=== PATIENT | female | born 1950 | race Caucasian/White ===

== ENCOUNTER 2020-04-16 11:01 | Outpatient (CLI) | payer OTHER, SELFPAY ==
[2020-04-17 17:28] LABS: COVID-19 RT-PCR Result NEGATIVE (Negative)
== END 2020-04-16 11:21 ==
DX: R06.09 Other forms of dyspnea (principal); Z01.818 Encounter for other preprocedural examination
CPT/HCPCS: U0003

== ENCOUNTER 2020-10-05 02:35 | Outpatient (CLI) | payer OTHER, SELFPAY ==
[2020-10-06 12:42] LABS: COVID-19 RT-PCR UVMMC Result Negative (Negative)
== END 2020-10-05 02:36 | disposition home or self-care (01) ==
LOC: LBO 02:36
DX: Z11.52 Encounter for screening for COVID-19 (principal); Z01.818 Encounter for other preprocedural examination
CPT/HCPCS: U0003

== ENCOUNTER 2020-12-06 16:25 | Outpatient (REF) | payer OTHER, SELFPAY ==
[2020-12-06 22:11] LABS: ALT 34 U/L (14-59); AST 18 U/L (15-37); Albumin 4.2 g/dL (3.4-5.0); Alkaline Phosphatase 67 U/L (46-116); Anion Gap 9.2 mmol/L (3-11); BUN 13 mg/dL (7-18); Bilirubin, Total 0.3 mg/dL (0.2-1.0); CO2 27.8 mmol/L (21.0-32.0); CREATININE 0.9 mg/dL (0.55-1.02); Calcium 8.8 mg/dL (8.5-10.1); Chloride 103 mmol/L (98-107); Glucose 90 mg/dL (74-106); Hemoglobin A1C 5.7 % (<5.7); Potassium 4.3 mmol/L (3.5-5.1); Sodium 140 mmol/L (136-145); Total Protein 7.2 g/dL (6.4-8.2); Vitamin B12 291 pg/mL (193-986)
== END 2020-12-06 16:26 | disposition home or self-care (01) ==
LOC: NCHCN 16:25
PROVIDERS: Visit Provider Nurse Practitioner Family
DX: E78.00 Pure hypercholesterolemia, unspecified (principal); I10 Essential (primary) hypertension; I25.10 Atherosclerotic heart disease of native coronary artery without angina pectoris; F31.9 Bipolar disorder, unspecified; K21.9 Gastro-esophageal reflux disease without esophagitis; E66.9 Obesity, unspecified; J44.9 Chronic obstructive pulmonary disease, unspecified; Z79.899 Other long term (current) drug therapy
CPT/HCPCS: 80053; 82607; 83036; 83735

== ENCOUNTER → 2021-01-20 12:57 | Outpatient (BNVA) | payer OTHER, SELFPAY | PROVIDERS: PCP Family Medicine; Referring Provider Family Medicine; Visit Provider Physical Therapy Assistant | DX: K21.9 Gastro-esophageal reflux disease without esophagitis (principal); Z12.11 Encounter for screening for malignant neoplasm of colon; J44.9 Chronic obstructive pulmonary disease, unspecified; Z80.0 Family history of malignant neoplasm of digestive organs | CPT/HCPCS: 99214 ==

== ENCOUNTER 2021-02-08 14:17 | Outpatient (REF) | payer OTHER, SELFPAY ==
[2021-02-08 21:34] LABS: Abs Immature Grans 0.02 10^3/uL (0.0-0.06); Absolute Basophil Count 0.03 10^3/uL (0.0-0.2); Absolute Eosinophil Count 0.08 10^3/uL (0.0-0.7); Absolute Lymphocyte Count 2.16 10^3/uL (1.2-3.4); Absolute Monocyte Count 0.42 10^3/uL (0.1-0.8); Absolute Neutrophil Count 3.19 10^3/uL (1.2-6.7); Basophils % 0.5; Eosinophils % 1.4; HCT 39.6 % (36.0-46.0); HGB 12.9 g/dL (11.2-15.7); Immature Grans % 0.3; Lymphocytes % 36.6; MCH 29.9 pg (27.0-33.0); MCHC 32.6 % (32.0-36.0); MCV 91.7 fL (80-95); MPV 12.3 fL (8.0-11.0); Monocytes % 7.1; Neutrophils % 54.1; Nucleated RBC 0 %; Platelet Count 119 10^3/uL (130-400); RBC 4.32 10^6/uL (3.93-5.22); RDW 14.5 % (11.7-14.6); RDW-SD 48.5 fL
[2021-02-08 21:36] LABS: ESR 12 mm/hr (0-30)
[2021-02-08 21:56] LABS: C-Reactive Protein 0.34 mg/dL (0.0-0.3)
== END 2021-02-08 14:18 | disposition home or self-care (01) ==
LOC: NCHCN 14:17
PROVIDERS: PCP Nurse Practitioner Family; Visit Provider Nurse Practitioner Family
DX: M31.6 Other giant cell arteritis (principal)
CPT/HCPCS: 85652; 85025; 86140

== ENCOUNTER 2021-02-11 03:40 | Outpatient (CLI) | payer OTHER, SELFPAY ==
[2021-02-11 11:29] LABS: Source Nasal/Nares
[2021-02-11 13:29] LABS: COVID-19 PCR Negative (Negative)
== END 2021-02-11 03:41 | disposition home or self-care (01) ==
LOC: LBO 03:40
PROVIDERS: PCP Nurse Practitioner Family; Visit Provider Surgery
DX: Z20.822 Contact with and (suspected) exposure to COVID-19 (principal); Z01.818 Encounter for other preprocedural examination
CPT/HCPCS: 87635

== ENCOUNTER 2021-02-14 07:15 | Day surgery (SDC) | payer OTHER, SELFPAY ==
[2021-02-14 07:17] VITALS: BP 137/84; PULSE 67; RESP 18; TEMP 36.6; O2SAT 91
[2021-02-14] MEDS: Lactated Ringers 1,000 ML 80 ML IV (07:44)
--- NOTE | 2021-02-14 08:11 | W.ANESPRE ---
General Info Date of Service Date Performed: 02/14/21 Height: 5 ft 1.02 in Weight: 81.2 kg Body Mass Index (BMI): 33.7 Surgical Procedure: Operation Date: 02/14/21 08:35 Proposed Procedures Side Surgeon p Colonoscopy/Gastroscopy Evaristo Miranda DO Meds Allergies and Home Medications Allergies Allergy/AdvReac Type Severity Reaction Status Date / Time Penicillins Allergy Severe Anaphylaxis Verified 02/11/21 11:04 Sulfa (Sulfonamide Allergy Severe none noted Verified 02/11/21 11:04 Antibiotics) on referral zolpidem [From Ambien] Allergy Severe none noted Verified 02/11/21 11:04 on referral gluten Allergy Intermediate none noted Verified 02/11/21 11:04 on referral ibuprofen Allergy Intermediate none noted Verified 02/11/21 11:04 on referral indapamide Allergy Intermediate none noted Verified 02/11/21 11:04 on referral piroxicam [From Feldene] Allergy Intermediate none noted Verified 02/11/21 11:04 on referral Home Medication Medication Instructions Recorded acetaminophen 650 mg 1,300 mg PO DAILY tab 12/31/20 tablet,extended release albuterol sulfate 90 mcg/actuation 2 puff INHALATION Q6H PRN 12/31/20 aerosol inhaler betamethasone dipropionate 0.05 % 1 applic TOPICAL DAILY PRN 12/31/20 topical cream budesonide-formoterol HFA 160 2 puff INHALATION BID 12/31/20 mcg-4.5 mcg/actuation aerosol inhaler cholecalciferol (vitamin D3) 25 25 mcg PO DAILY 12/31/20 mcg (1,000 unit) capsule clonazepam 0.5 mg tablet 0.5 mg PO PRN tab 12/31/20 docusate sodium 100 mg capsule 100 mg PO BID 12/31/20 enalapril maleate 5 mg tablet 5 mg PO BID 12/31/20 escitalopram oxalate 5 mg tablet 5 mg PO DAILY 12/31/20 lactobacillus combination no.9 4 4,000 mmu cells PO DAILY 12/31/20 billion cell capsule loratadine 10 mg capsule 10 mg PO DAILY 12/31/20 lovastatin 20 mg tablet 10 mg PO DAILY tab 12/31/20 melatonin 10 mg capsule 10 mg PO HS PRN 12/31/20 oxybutynin chloride 10 mg 10 mg PO DAILY 12/31/20 tablet,extended release 24 hr pantoprazole 40 mg tablet,delayed 40 mg PO DAILY 12/31/20 release bisacodyl 5 mg tablet,delayed 5 mg PO ONCE #4 tab 01/20/21 release polyethylene glycol 3350 17 238 g PO ONCE #238 g 01/20/21 gram/dose oral powder vitamin B complex 1 tab PO DAILY 01/20/21 Current Visit Medications: Current Medications Generic Name Dose Route Start Last Admin Trade Name Freq PRN Reason Stop Dose Admin Ringer's Solution 1,000 mls @ 80 mls/hr 02/14/21 06:00 02/14/21 07:44 IV 03/13/21 23:59 80 mls/hr INFUSION MATT Administration IV Miscellaneous Supplies 1 each 02/14/21 06:00 Iv Access IV 03/13/21 23:59 DIRECTED MATT Sodium Chloride 0 ml 02/14/21 06:00 Normal Saline Flush 10 Ml Syr IV 03/13/21 23:59 PRN PRN Sodium Chloride 0 ml 02/14/21 06:00 Normal Saline 10 Ml Vial IJ 03/13/21 23:59 DIRECTED PRN Sterile Water 0 ml 02/14/21 06:00 Water,Injection,Sterile 10 Ml Vial IJ 03/13/21 23:59 DIRECTED PRN PFSH Active Problems Active Problems: Problem Status Onset Code Gastroesophageal reflux disease K21.9 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 Screening for colon cancer Z12.11 Medical History Medical History Atherosclerosis Bipolar 1 disorder Cataract COPD (chronic obstructive pulmonary disease) Deafness in left ear Family history of breast cancer in first degree relative Family history of celiac sprue Family hx of colon cancer Former smoker Functional constipation GERD (gastroesophageal reflux disease) Glaucoma Gluten intolerance History of prediabetes Hypercholesterolemia Hypertension Impacted cerumen of left ear Lichen sclerosus et atrophicus of the vulva Mixed incontinence urge and stress Obesity RICARDO (obstructive sleep apnea) Osteoarthritis Pseudophakia Suicidal risk Temporal arteritis Thrombocytopenia Vaginal atrophy Surgical History Surgical History H/O knee surgery H/O tubal ligation History of appendectomy History of fundoplication History of tonsillectomy History of urethral stent Hx of cataract surgery Tobacco Smoking/Tobacco Use Status: Former Tobacco Use Alcohol Alcohol Intake: current Alcohol intake frequency: 0-2 drinks per day Alcohol type: wine Substance Use Substance use type: does not use Vital Signs and Lab Results Vital Signs Most Recent Vital Signs in EMR: Most Recent Vital Signs Temp Pulse Resp BP Pulse Ox 36.6 C 67 18 137/84 91 L 02/14/21 07:17 02/14/21 07:17 02/14/21 07:17 02/14/21 07:17 02/14/21 07:17 Lab Results Blood Type / Crossmatch: No Data to Display Complete Blood Count: White Blood Count 5.90 10^3/uL (4.4-10.8) 02/08/21 13:40 02/08/21 Red Blood Count 4.32 10^6/uL (3.93-5.22) 02/08/21 13:40 02/08/21 Hemoglobin 12.9 g/dL (11.2-15.7) 02/08/21 13:40 02/08/21 Hematocrit 39.6 % (36.0-46.0) 02/08/21 13:40 02/08/21 Platelet Count 119 10^3/uL (130-400) L 02/08/21 13:40 02/08/21 Complete Metabolic Panel: C-Reactive Protein 0.34 mg/dL (0.0-0.3) H 02/08/21 13:40 02/08/21 Liver Function Panel: No Data to Display Coagulation Panel: No Data to Display Cardiac Panel: No Data to Display Arterial Blood Gas: No Data to Display Venous Blood Gas: No Data to Display Pancreas Panel: No Data to Display Thyroid Panel: No Data to Display Infectious Disease: Coronavirus (COVID-19)(PCR) Negative (Negative) 02/11/21 08:55 02/11/21 Coronavirus 2019 Source Nasal/nares 02/11/21 08:55 02/11/21 Blood Cultures: No Data to Display Toxicology Panel: No Data to Display Anesthesia Assessment and Plan Anesthesia History Personal History: No History of Anesthesia Complications Family History: No Family History of Anesthesia Complications Exercise Tolerance Exercise Tolerance: Metabolic Equivalents>4 Pertinent Negatives Pertinent Negatives: No Major Cardiovascular Symptoms or Complaints and No History of CVA/TIA Cardiac & Pulmonary Exam Cardiac Exam: Normal S1/S2 Heart Sounds Pulmonary Exam: Clear Bilateral Breath Sounds Airway Exam Known Difficult Airway: No Mallampati Class: 1 Mouth Opening: Normal (> 3cm) Thyromental Distance: Greater than 3 cm Neck Range of Motion: Full ROM Neck Circumference: Normal Teeth Condition: Removable Dentures/Plates Upper ASA Classification ASA Score: ASA 3 Emergency Case?: No NPO Status NPO Status: NPO Clears >2 hours, Solids >8 hours Anesthesia Plan Resuscitation Status: Full Code Anesthesia Technique: General Anesthesia Airway Planned: Natural Airway Monitors Used: Standard Monitors
--- NOTE | 2021-02-14 08:32 | W.PM.HP.N ---
Date of service: 02/14/21 Time of Service: 08:32 Assessment and Plan Assessment and plan (1) Screening for colon cancer: Status: Acute Assessment and plan: To OR for colonoscopy. Risks and benefits, including bleeding and risk of perforation, explained to the patient. History of Present Illness History of Present Illness Chief Complaint: Need for colonscopy Narrative: Patient presents for screening colonoscopy. Reports that her last colonoscopy was 8-10 years ago. No personal history of polyps. Her father had colon cancer in his 40's but did not pass away until 94 years old. [facility] Medical History Atherosclerosis Bipolar 1 disorder Cataract COPD (chronic obstructive pulmonary disease) Deafness in left ear Family history of breast cancer in first degree relative Family history of celiac sprue Family hx of colon cancer Former smoker Functional constipation GERD (gastroesophageal reflux disease) Glaucoma Gluten intolerance History of prediabetes Hypercholesterolemia Hypertension Impacted cerumen of left ear Lichen sclerosus et atrophicus of the vulva Mixed incontinence urge and stress Obesity RICARDO (obstructive sleep apnea) Osteoarthritis Pseudophakia Suicidal risk Temporal arteritis Thrombocytopenia Vaginal atrophy Surgical History H/O knee surgery H/O tubal ligation History of appendectomy History of fundoplication History of tonsillectomy History of urethral stent Hx of cataract surgery Family History (Updated 02/10/21 @ 14:08 by Loli Woods) Father , FROM [place] Colon cancer Dementia FH: cataracts Mother Heart disease Depression Arthritis Diabetes Hypertension Sister Breast cancer Hypertension Sister Kidney malignancy COPD (chronic obstructive pulmonary disease) Loss of balance Sister COPD (chronic obstructive pulmonary disease) Cancer Smoker Sister COPD (chronic obstructive pulmonary disease) Obesity Diabetes Sister COPD (chronic obstructive pulmonary disease) Obesity Smoker Stroke Brother Myocardial infarct, old Brother Hypertension Myocardial infarct, old Daughter Asthma Son Lung abnormality Social History (Updated 02/10/21 @ 13:54 by Loli Woods) Smoking/Tobacco Use Status: Former Tobacco Use Quit Date: 09/03/13 Smoking risk assessment performed?: Yes Alcohol Intake: current Alcohol Intake frequency: 0-2 drinks per day Alcohol type: wine Substance use type: does not use Do you feel safe at home: Yes Do you feel safe in your relationship?: Yes Meds Allergies and Home Medications Allergies Allergy/AdvReac Type Severity Reaction Status Date / Time Penicillins Allergy Severe Anaphylaxis Verified 02/11/21 11:04 Sulfa (Sulfonamide Allergy Severe none noted Verified 02/11/21 11:04 Antibiotics) on referral zolpidem [From Ambien] Allergy Severe none noted Verified 02/11/21 11:04 on referral gluten Allergy Intermediate none noted Verified 02/11/21 11:04 on referral ibuprofen Allergy Intermediate none noted Verified 02/11/21 11:04 on referral indapamide Allergy Intermediate none noted Verified 02/11/21 11:04 on referral piroxicam [From Feldene] Allergy Intermediate none noted Verified 02/11/21 11:04 on referral Home Medications Medication Instructions Recorded Confirmed Type acetaminophen 650 mg 1,300 mg PO DAILY tab 12/31/20 02/14/21 History tablet,extended release albuterol sulfate 90 mcg/actuation 2 puff INHALATION Q6H PRN 12/31/20 02/14/21 History aerosol inhaler betamethasone dipropionate 0.05 % 1 applic TOPICAL DAILY PRN 12/31/20 02/14/21 History topical cream budesonide-formoterol HFA 160 2 puff INHALATION BID 12/31/20 02/14/21 History mcg-4.5 mcg/actuation aerosol inhaler cholecalciferol (vitamin D3) 25 25 mcg PO DAILY 12/31/20 02/14/21 History mcg (1,000 unit) capsule clonazepam 0.5 mg tablet 0.5 mg PO PRN tab 12/31/20 02/14/21 History docusate sodium 100 mg capsule 100 mg PO BID 12/31/20 02/14/21 History enalapril maleate 5 mg tablet 5 mg PO BID 12/31/20 02/14/21 History escitalopram oxalate 5 mg tablet 5 mg PO DAILY 12/31/20 02/14/21 History lactobacillus combination no.9 4 4,000 mmu cells PO DAILY 12/31/20 02/14/21 History billion cell capsule loratadine 10 mg capsule 10 mg PO DAILY 12/31/20 02/14/21 History lovastatin 20 mg tablet 10 mg PO DAILY tab 12/31/20 02/14/21 History melatonin 10 mg capsule 10 mg PO HS PRN 12/31/20 02/14/21 History oxybutynin chloride 10 mg 10 mg PO DAILY 12/31/20 02/14/21 History tablet,extended release 24 hr pantoprazole 40 mg tablet,delayed 40 mg PO DAILY 12/31/20 02/14/21 History release bisacodyl 5 mg tablet,delayed 5 mg PO ONCE #4 tab 01/20/21 02/14/21 Rx release polyethylene glycol 3350 17 238 g PO ONCE #238 g 01/20/21 02/14/21 Rx gram/dose oral powder vitamin B complex 1 tab PO DAILY 01/20/21 02/14/21 History Exam Chest Chest: normal inspection of the chest Resp Effort & Inspection: normal respiratory effort, able to speak in complete sentences and no tracheal deviation Cardio Jugular venous pressure: no JVD Rate: regular rate Rhythm: regular rhythm Results Last Vital Signs Temp 97.9 F 02/14/21 07:17 Pulse 67 02/14/21 07:17 Resp 18 02/14/21 07:17 BP 137/84 02/14/21 07:17 Pulse Ox 91 L 02/14/21 07:17 COVID-19 Screening Have you, or household traveled for leisure in last 14 days?: No Had IN PERSON contact w/suspected or confirmed C-19 person: No
[2021-02-14 08:42] VITALS: BMI 33.7
--- NOTE | 2021-02-14 09:45 | W.PM.ENDDOP ---
Date of service: 02/14/21 Time of Service: 09:45 Endoscopy Report DATE OF PROCEDURE: 02/14/21 PRE-OP DIAGNOSIS: GERD. Need for screening colonoscopy POST-OP DIAGNOSIS: other (Normal EGD. Minimal colonic divertidculosis. No significant hemorrhoids) PROCEDURE: EGD and Screening colonoscopy SURGEON: Evaristo Miranda ANESTHESIA TYPE: General:No Airway ESTIMATED BLOOD LOSS: 0 PATHOLOGY: none sent COMPLICATIONS: None DISPOSITION: same day INDICATIONS: Patient has longstanding GERD and is in need of a screening colonoscopy PREP: Miralax/Dulcolax COLONOSCOPY RETRACTION TIME: 18 min FINDINGS: Normal EGD. 1 small diverticulum in the ascending colon No significant hemorrhoids PROCEDURE DESCRIPTION: Patient was wheeled into the procedure room and placed on the hospital bed in the left lateral position. Adequate anesthesia was performed by the department of anesthesia. Consent was obtained prior. Scope was then inserted in the patient's mouth and easily advanced all the way into the third portion of the duodenum. Photographs were taken of the duodenum. Scope was then slowly withdrawn examining the duodenum and stomach. There was no pathology. There was no hiatal hernia or gastritis. Retroflexion view was performed. Scope was then slowly withdrawn through the esophagus again no hiatal hernia was seen. The GE junction was pristine. I slowly withdrew the scope through the esophagus and saw no pathology. Patient was then turned and attention was taken to the colonoscopy. A digital rectal exam was performed and was within normal limits. The scope was then easily advanced all the way to the ileocecal valve. Photos were taken in the cecum. The scope was then slowly withdrawn looking at all gonzáles of the colon. The prep was excellent. The only pathology seen on colonoscopy was one diverticulum in the distal ascending colon. There is no significant hemorrhoids. Patient conveyed to me preoperatively that she believes she might be passing stool and flatus through her vagina, however no fistula was identified. Significant time was taken looking through the rectum for a possible fistula. The scope was then withdrawn. Patient tolerated procedure well.
--- NOTE | 2021-02-14 09:51 | W.PM.DSUDISC ---
Discharge Plan Discharge Details Attending Provider: Evaristo Miranda Primary Care Provider: Sarita Bone Home Meds and New Rx's Prescriptions: No Action vitamin B complex [B Complex-Vitamin B12] Tablet 1 tab PO DAILY RF: 0 bisacodyl [Dulcolax (bisacodyl)] 5 mg tablet,delayed release (DR/EC) 5 mg PO ONCE Qty: 4 RF: 0 polyethylene glycol 3350 17 gram/dose powder 238 g PO ONCE Qty: 238 RF: 0 enalapril maleate 5 mg tablet 5 mg PO BID RF: 0 docusate sodium [Colace] 100 mg capsule 100 mg PO BID RF: 0 albuterol sulfate 90 mcg/actuation HFA aerosol inhaler 2 puff inhalation Q6H PRNRF: 0 budesonide-formoterol [Symbicort] 160-4.5 mcg/actuation HFA aerosol inhaler 2 puff inhalation BID RF: 0 clonazepam 0.5 mg tablet 0.5 mg PO PRN RF: 0 oxybutynin chloride [Ditropan XL] 10 mg tablet extended release 24hr 10 mg PO DAILY RF: 0 escitalopram oxalate 5 mg tablet 5 mg PO DAILY RF: 0 acetaminophen [Tylenol Arthritis Pain] 650 mg tablet extended release 1,300 mg PO DAILY RF: 0 betamethasone dipropionate 0.05 % cream 1 applic topical DAILY PRNRF: 0 cholecalciferol (vitamin D3) 25 mcg (1,000 unit) capsule 25 mcg PO DAILY RF: 0 Adult 50 Plus Probiotic 4 billion cell capsule 4,000 mmu cells PO DAILY RF: 0 loratadine 10 mg capsule 10 mg PO DAILY RF: 0 melatonin 10 mg capsule 10 mg PO HS PRNRF: 0 lovastatin 20 mg tablet 10 mg PO DAILY RF: 0 pantoprazole [Protonix] 40 mg tablet,delayed release (DR/EC) 40 mg PO DAILY RF: 0 DS: Diagnosis Discharge Diagnosis (1) Screening for colon cancer: Status: Acute Asessment and Plan: mild diverticulosis. Normal EGD. No rectovaginal fistula identified. No significant hemorrhoids.
[2021-02-14 09:53] VITALS: BP 115/57; PULSE 59; RESP 14; TEMP 36.8; O2SAT 93
[2021-02-14 10:20] VITALS: BP 146/80; PULSE 58; RESP 16; TEMP 36.3; O2SAT 92
--- NOTE | 2021-02-14 11:43 | W.ANESPOSTOP ---
Postoperative Evaluation Date, Time and Location Date Performed: 02/14/21 Time Performed: 11:43 Patient Location: Day Surgery Unit Vital Signs Most Recent Imported Vital Signs: Most Recent Vital Signs Temp Pulse Resp BP Pulse Ox 36.3 C L 58 L 16 146/80 H 92 02/14/21 10:20 02/14/21 10:20 02/14/21 10:20 02/14/21 10:20 02/14/21 10:20 Pain Score Most Recent Pain Score: Most Recent Pain Score Pain Level 0 02/14/21 09:53 Assessment Mental Status: Awake (Alert & Oriented to Patient Baseline) Airway and Respiratory Function: Patent airway with normal (patient baseline) respiratory exam Cardiovascular Function: Hemodynamically Stable Hydration Status: Adequately Hydrated Nausea & Vomiting: No Nausea or Vomiting Pain: Pt. Denies Any Pain Peripheral Nerve Block: Patient did not receive a nerve block
== END 2021-02-14 10:30 | disposition home or self-care (01) ==
LOC: SUR 10:39
PROVIDERS: PCP Nurse Practitioner Family; Visit Provider Surgery
PROC: (CPT 43235; principal; 2021-02-14 08:30)
DX: Z12.11 Encounter for screening for malignant neoplasm of colon (principal); K21.9 Gastro-esophageal reflux disease without esophagitis; K57.30 Diverticulosis of large intestine without perforation or abscess without bleeding; J44.9 Chronic obstructive pulmonary disease, unspecified; Z87.891 Personal history of nicotine dependence; I10 Essential (primary) hypertension; G47.33 Obstructive sleep apnea (adult) (pediatric)
CPT/HCPCS: 43235; G0121; J2001; J2250

== ENCOUNTER 2021-02-15 13:19 | Outpatient (REF) | payer OTHER, SELFPAY ==
[2021-02-15 20:51] LABS: ALT 29 U/L (14-59); AST 16 U/L (15-37); Albumin 4.1 g/dL (3.4-5.0); Alkaline Phosphatase 81 U/L (46-116); Anion Gap 6.4 mmol/L (3-11); BUN 12 mg/dL (7-18); Bilirubin, Total 0.3 mg/dL (0.2-1.0); CO2 30.6 mmol/L (21.0-32.0); CREATININE 0.9 mg/dL (0.55-1.02); Chloride 107 mmol/L (98-107); Glucose 55 mg/dL (74-106); Potassium 4.4 mmol/L (3.5-5.1); Sodium 144 mmol/L (136-145); TSH (W/Ref FT4) 0.59 uIU/mL (0.36-3.74); Total Protein 7.3 g/dL (6.4-8.2)
== END 2021-02-15 13:20 | disposition home or self-care (01) ==
LOC: NCHCN 13:19
PROVIDERS: PCP Nurse Practitioner Family; Visit Provider Nurse Practitioner Family
DX: I10 Essential (primary) hypertension (principal); D69.6 Thrombocytopenia, unspecified; M31.6 Other giant cell arteritis
CPT/HCPCS: 80053; 84443; 85049; 85610

== ENCOUNTER 2021-02-18 13:49 | Outpatient (REF) | payer OTHER, SELFPAY ==
[2021-02-18 14:08] LABS: Platelet Count 151 10^3/uL (130-400)
== END 2021-02-18 13:50 | disposition home or self-care (01) ==
LOC: NCHCN 13:49
PROVIDERS: PCP Nurse Practitioner Family; Visit Provider Nurse Practitioner Family
DX: D69.6 Thrombocytopenia, unspecified (principal)
CPT/HCPCS: 85049

== ENCOUNTER 2021-03-24 01:43 | Outpatient (CLI) | payer OTHER, SELFPAY ==
--- NOTE | 2021-03-24 | DI.DEXA_ITS ---
Exam(s) XR DEXA BONE DENSITY W/WO MICHAEL EXAM: XR DEXA BONE DENSITY W/WO MICHAEL CLINICAL HISTORY: DISORDER OF BONE DENSITY AND STRUCTURE, M85.88 TECHNIQUE: Routine DEXA evaluation of the lumbar spine, hip, or forearm. COMPARISON: Prior DEXA scan February 2012 FINDINGS: Performed on a [employer] unit. Lateral image: No compression fracture evident. Lumbar Spine total T-score: -1.9. Prior 1011 reading was -2.0 Hip total T-score:-1.1. Prior 2011 reading was -1.2. Independent reading at the femoral neck level yields a T-score of -1.7 Forearm total T-score: -0.9 IMPRESSION: Bone mineral density measures in the osteopenia range. Fracture risk is moderate. Note: Any spine fracture indicates 5x risk for subsequent spine fracture and 2x risk for subsequent h ip fracture. World Health Organization criteria for BMD interpretation classify patients: Normal...... T- Score at or above -1.0 Osteopenic... T- Score between -1.0 and -2.5 Osteoporosis... T-Score at or below -2.5
--- NOTE | 2021-03-24 | DI.MAMMO_ITS ---
Exam(s) MAMMO SCREENING EXAM: MAMMO SCREENING CLINICAL HISTORY: SCREENING, FAMILY H/O BREAST CA,Z80.3 TECHNIQUE: Bilateral full field digital CC and MLO mammographic images were obtained with 3D tomosyn thesis and utilizing computer aided detection (CAD). COMPARISON: Available for comparison. FINDINGS: Masses/Architectural Distortion: There is asymmetric breast tissue in the upper outer quadrant of the right breast seen on both the CC and MLO views. This area should be further evaluated. Microcalcifications: No suspicious pleomorphic-type are seen. Skin Thickening/Nipple Retraction: None. IMPRESSION: 1. Asymmetric breast tissue in the upper-outer quadrant of the right breast. 2. Additional views and right breast ultrasound are recommended for further evaluation. BI-RADS Category 0 - Assessment Incomplete: Need additional imaging evaluation Breast Density - Category C - Heterogeneously dense Breast density category C or D implies that the patient has dense breast tissue. Dense breast tissue is very common and is not abnormal but dense breast tissue can make it harder to find cancer on a ma mmogram. Also, dense breast tissue may increase their breast cancer risk. This information about the result of the mammogram report was provided to the patient to raise their awareness. Use this report when you speak with the patient about their risks for breast cancer, which includes their family hist ory. At that time, you may recommend for more screening tests (Ultrasound or MRI) as they might be us eful based on their risk. A negative radiographic report should not delay biopsy if a dominant or clinically suspicious mass is present. Up to ten percent of cancers are not identified on mammography. A negative report may reinforce clinical impression. Adenosis and dense breasts may obscure an underlying neoplasm. False positive reports average 6 to 10%. Patient will receive a letter notifying them of these results.
== END 2021-03-24 02:03 ==
PROVIDERS: PCP Nurse Practitioner Family; Visit Provider Nurse Practitioner Family
DX: M85.88 Other specified disorders of bone density and structure, other site; Z80.3 Family history of malignant neoplasm of breast
CPT/HCPCS: 77063; 77067; 77080

== ENCOUNTER → 2021-04-12 01:38 | Outpatient (CLI) | payer OTHER, SELFPAY ==
--- NOTE | 2021-04-12 | DI.US_ITS ---
Exam(s) MG MAMMO SCREEN CALL BACK UNI US BREAST RT LIMITED EXAM: MG MAMMO SCREEN CALL BACK UNI CLINICAL HISTORY: F/U MAMMO,RT BREAST ASYMMETRIC TISSUE. TECHNIQUE: Craniocaudal and mediolateral oblique spot compression digital Mammography views of the r ight breast with Computer Aided Diagnosis followed by Tomosynthesis and right breast ultrasound. COMPARISON: 2011, 2016 and 24 March 2021 FINDINGS: Mammography/Tomosynthesis: Masses/Architectural Distortion: None seen. Microcalcifictions: No suspicious pleomorphic-type are seen. Skin Thickening/Nipple Retraction: None. Breast US: Echotexture: Normal appearance of the glandular tissue. Shadowing: No suspicious foci. Cyst: None. Solid lesions: None seen. Ductal dilation: None. IMPRESSION: 1. No evidence of malignancy is noted. 2. Six-month follow-up mammogram recommended. BI-RADS Category 3 - 6 month - Probably Benign Finding: Recommend follow-up imaging in 6 months Breast Density - Category C - Heterogeneously dense Breast density category C or D implies that the patient has dense breast tissue. Dense breast tissue is very common and is not abnormal but dense breast tissue can make it harder to find cancer on a ma mmogram. Also, dense breast tissue may increase their breast cancer risk. This information about the result of the mammogram report was provided to the patient to raise their awareness. Use this report when you speak with the patient about their risks for breast cancer, which includes their family hist ory. At that time, you may recommend for more screening tests (Ultrasound or MRI) as they might be us eful based on their risk. A negative radiographic report should not delay biopsy if a dominant or clinically suspicious mass is present. Up to ten percent of cancers are not identified on mammography. A negative report may reinforce clinical impression. Adenosis and dense breasts may obscure an underlying neoplasm. False positive reports average 6 to 10%. Patient will receive a letter notifying them of these results.
== END ==
PROVIDERS: PCP Nurse Practitioner Family; Visit Provider Nurse Practitioner Family
DX: R92.8 Other abnormal and inconclusive findings on diagnostic imaging of breast (principal); N64.89 Other specified disorders of breast
CPT/HCPCS: 76642; 77063; 77067

== ENCOUNTER 2021-04-12 16:36 | Outpatient (CLI) | payer OTHER, SELFPAY ==
[2021-04-12 16:02] LABS: ALT 23 U/L (14-59); AST 15 U/L (15-37); Albumin 3.9 g/dL (3.4-5.0); Alkaline Phosphatase 64 U/L (46-116); Anion Gap 5.9 mmol/L (3-11); BUN 18 mg/dL (7-18); Bilirubin, Total 0.2 mg/dL (0.2-1.0); CO2 29.1 mmol/L (21.0-32.0); CREATININE 0.8 mg/dL (0.55-1.02); Calcium 9.1 mg/dL (8.5-10.1); Chloride 107 mmol/L (98-107); Creatine Kinase 57 U/L (26-192); Glucose 97 mg/dL (74-106); Potassium 4.4 mmol/L (3.5-5.1); Sodium 142 mmol/L (136-145); Total Protein 7.1 g/dL (6.4-8.2)
[2021-04-12 16:04] LABS: Troponin I < 0.05 ng/mL (<0.06)
== END 2021-04-12 16:37 | disposition home or self-care (01) ==
LOC: LBO 16:37
PROVIDERS: PCP Nurse Practitioner Family; Visit Provider Nurse Practitioner Family
DX: R07.9 Chest pain, unspecified (principal); G44.89 Other headache syndrome; I10 Essential (primary) hypertension; R73.03 Prediabetes; M31.6 Other giant cell arteritis
CPT/HCPCS: 36415; 80053; 82550; 84484

== ENCOUNTER 2021-05-13 12:22 | Outpatient (CLI) | payer OTHER, SELFPAY ==
--- NOTE | 2021-05-13 12:15 | RT.EKG_ITS ---
APPROVED REPORT Exam: Resting ECG Reason for Exam: chest pain Patient Location: O HR:62 bpm ECG Measurements Heart Rate 62 AXIS OK 174 P 36 QRSd 103 QRS -12 QT 419 T 54 QTc 426 Conclusion Sinus rhythm...normal P axis, V-rate 50- 99 Normal Electrocardiogram
== END 2021-05-13 12:23 | disposition home or self-care (01) ==
LOC: DI.CARD 12:23
PROVIDERS: PCP Nurse Practitioner Family; Visit Provider Internal Medicine Cardiovascular Disease
DX: R07.9 Chest pain, unspecified (principal)
CPT/HCPCS: 93010

== ENCOUNTER → 2021-05-13 12:39 | Outpatient (BNVA) | payer OTHER, SELFPAY | PROVIDERS: PCP Nurse Practitioner Family; Referring Provider Nurse Practitioner Family; Visit Provider Internal Medicine Cardiovascular Disease | DX: R07.89 Other chest pain (principal); I10 Essential (primary) hypertension; E78.00 Pure hypercholesterolemia, unspecified; J44.9 Chronic obstructive pulmonary disease, unspecified; Z87.891 Personal history of nicotine dependence | CPT/HCPCS: 93005; 99203; 99213 ==

== ENCOUNTER → 2021-05-16 13:32 | Outpatient (BNVA) | payer OTHER, SELFPAY | PROVIDERS: PCP Nurse Practitioner Family; Referring Provider Nurse Practitioner Family; Visit Provider Psychiatry & Neurology Neurology | DX: G25.0 Essential tremor (principal); I25.10 Atherosclerotic heart disease of native coronary artery without angina pectoris; J44.9 Chronic obstructive pulmonary disease, unspecified; G47.33 Obstructive sleep apnea (adult) (pediatric); R73.03 Prediabetes | CPT/HCPCS: 99215 ==

== ENCOUNTER → 2021-05-24 00:17 | Outpatient (CLI) | payer OTHER, SELFPAY ==
--- NOTE | 2021-05-24 | DI.MRI_ITS ---
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 CONTRAST MATERIAL: IV Contrast: 17 ML of Dotarem contrast administered. COMPARISON: No exams were available for comparison FINDINGS: VENTRICLES AND EXTRA AXIAL SPACES: Normal in size and morphology for the patient's age. HEMORRHAGE: None. CEREBRAL PARENCHYMA: No focus of restricted diffusion to suggest acute infarct. No space-occupying le sid identified. There are areas of hyperintense signal on the T2 and FLAIR images in the white matte r most consistent with chronic microvascular ischemic change. MIDLINE SHIFT: None. BRAINSTEM/CEREBELLUM: Normal. CALVARIUM: Normal. ENHANCEMENT: No suspicious enhancement identified. VISUALIZED PARANASAL SINUSES/MASTOIDS: Clear. [place]: Normal flow void. PITUITARY GLAND: Unremarkable. OTHER FINDINGS: IMPRESSION: 1. Age-appropriate cerebral atrophy and small vessel ischemic disease. 2. No enhancing lesion or intracranial mass. DATA REPOSITORY:
[2021-05-24] MEDS: Normal Saline Flush 10 ML SYR IVP (09:35)
[2021-05-24] MEDS: Gadoterate meglumine 20 ML VIAL 17 ML IVP (09:35)
== END ==
PROVIDERS: PCP Nurse Practitioner Family; Visit Provider Nurse Practitioner Family
DX: G44.89 Other headache syndrome (principal); M31.6 Other giant cell arteritis; G31.9 Degenerative disease of nervous system, unspecified; R90.82 White matter disease, unspecified
CPT/HCPCS: 70553

== ENCOUNTER 2021-06-02 02:09 | Outpatient (CLI) | payer OTHER, SELFPAY ==
--- NOTE | 2021-06-02 09:00 | ETT_ITS ---
APPROVED REPORT Exam: Exercise Treadmill Patient Location: Out-Patient Room/Bed: Stress Nurse: Vivien Swift RN Ordering Provider:TOO WAYNE, Contact Number: BMI: 34.57 Baseline Rhythm: Sinus Bradycardia Indications: Chest pain Medical History Medical History: Bipolar I, COPD, former smoker, GERD, Glaucoma, Prediabetes, Hypercholesterolemia, H LD, Obesity, RICARDO, OA, Osteoporosis, Thrombocytopenia Cardiac Medications: Pantoprazole, Lovastatin, Enalapril maleate, Albuterol sulfate inhaler, Budesoni de-formoterol inhaler, , Allergies: Zolpidem, Gluten, Ibuprofen, PNCs, Sulfa, Piroxicam, Indapamide Cardiac Risk Factors: FHX of CAD, HTN, Hyperlipidemia, DM, Asthma, COPD, Smoking (former), Obesity Previous Cardiac Procedures: None Pretest Chest Pain Characteristics: No chest pain Exercise History: Sedentary Physical Disabilities: None Lung Sounds: Clear to auscultation Heart Sounds: Regular Stress Test Details Test: Exercise stress testing was performed using a Krish protocol. Rest Stress HR Resting HR Supine: 59 bpm Max Heart Rate (APMHR): 149 bpm Resting HR Standin bpm Target HR (85% APMHR): 126 bpm Max HR Achieved: 128 bpm % of APMHR: 85 Recovery HR: 67 bpm HR response to stress: Normal HR response to stress BP Resting BP Supine: 150/78 mmHg Resting BP Standin/80 mmHg Max BP: 180/78 mmHg Recovery BP: 144/76 mmHg BP response to stress: Normal blood pressure response to stress. ECG Resting ECG: Sinus Bradycardia Ectopy: None Stress ECG: Sinus Tachycardia ST Change: No significant ST segment changes noted Arrhythmia: None, None, APC's, VPC's, Atrial fibrillation, SVT Recovery ECG: Sinus Rhythm Recovery ST Change: No significant ST segment changes noted Recovery Arrhythmia: None Clinical Reason for Termination: Fatigue Stress Symptoms: Chest pain, Dyspnea Exercise duration: 7 min27 sec Highest Stage Reached: Stage 3: 3.4 mph at 14% grade. Exercise capacity: 9.31 METs Springer Treadmill Score: 2.8 Rate Pressure Product: [id number] Stress ECG Conclusion 1. The resting electrocardiogram was normal 2. Patient exercised on the Krish protocol and completed a workload of 9.31 METS. She achieved 85% o f predicted heart rate for age 3. Normal heart rate and blood pressure response to exercise 4. Electrocardiographically there was no evidence of myocardial ischemia 5. The patient described chest pain with exertion, relieved with rest, consistent with angina Springer Treadmill Score is 2.8 which is Moderate risk. Stress Test Summary STAGE Time (mins) Speed (mph) Grade (%) HR BP SYMPTOMS METS Supine 59 150/78 Standing 67 148/80 1 3 1.7 10 108 160/82 4.6 2 6 2.5 12 117 mod SOB, SpO2 95%. 6/10 sternal crushing chest pain 7 1 min recovery 91 172/72 6/10 chest pain 3 min recovery 72 180/78 chest pain resolved 6 min recovery 67 144/76
== END 2021-06-02 02:29 ==
PROVIDERS: PCP Nurse Practitioner Family; Visit Provider Internal Medicine Cardiovascular Disease
DX: R07.9 Chest pain, unspecified (principal); Z82.49 Family history of ischemic heart disease and other diseases of the circulatory system; I10 Essential (primary) hypertension; E78.5 Hyperlipidemia, unspecified; E11.9 Type 2 diabetes mellitus without complications; J44.9 Chronic obstructive pulmonary disease, unspecified; J45.909 Unspecified asthma, uncomplicated; Z87.891 Personal history of nicotine dependence; E66.9 Obesity, unspecified; Z68.34 Body mass index [BMI] 34.0-34.9, adult
CPT/HCPCS: 93016; 93018; 93017

== ENCOUNTER → 2021-06-17 11:03 | Outpatient (BNVA) | payer OTHER, SELFPAY | PROVIDERS: PCP Nurse Practitioner Family; Referring Provider Nurse Practitioner Family; Visit Provider Internal Medicine Cardiovascular Disease | DX: R07.89 Other chest pain (principal); I10 Essential (primary) hypertension | CPT/HCPCS: 99214; 99213 ==

== ENCOUNTER 2021-10-03 14:35 | Outpatient (REF) | payer OTHER, SELFPAY ==
[2021-10-03 21:36] LABS: ALT 25 U/L (14-59); AST 17 U/L (15-37); Albumin 4.2 g/dL (3.4-5.0); Alkaline Phosphatase 70 U/L (46-116); Anion Gap 9.6 mmol/L (3-11); BUN 13 mg/dL (7-18); Bilirubin, Total 0.5 mg/dL (0.2-1.0); CO2 27.4 mmol/L (21.0-32.0); CREATININE 0.7 mg/dL (0.55-1.02); Calcium 9.1 mg/dL (8.5-10.1); Calculated LDL 122 mg/dL (<100); Chloride 103 mmol/L (98-107); Cholesterol 239 mg/dL (<200); Glucose 92 mg/dL (74-106); HDL Cholesterol 105 mg/dL (40-60); Potassium 4.5 mmol/L (3.5-5.1); Sodium 140 mmol/L (136-145); Total Protein 7.2 g/dL (6.4-8.2); Triglyceride 61 mg/dL (<150)
== END 2021-10-03 14:36 | disposition home or self-care (01) ==
LOC: NCHCN 14:35
PROVIDERS: PCP Nurse Practitioner Family; Visit Provider Nurse Practitioner Family
DX: E78.00 Pure hypercholesterolemia, unspecified (principal); R73.03 Prediabetes; J44.9 Chronic obstructive pulmonary disease, unspecified; D69.6 Thrombocytopenia, unspecified; M85.88 Other specified disorders of bone density and structure, other site; R07.89 Other chest pain; G25.0 Essential tremor
CPT/HCPCS: 80053; 80061

== ENCOUNTER 2021-10-17 00:32 | Outpatient (CLI) | payer OTHER, SELFPAY ==
--- NOTE | 2021-10-17 | DI.US_ITS ---
Exam(s) US BREAST RT COMPLETE EXAM: US BREAST RT COMPLETE CLINICAL HISTORY: 6 MO F/U RT BREAST IMAGING, F/U ABNL MAMMO. TECHNIQUE: Complete ultrasound of the right breast was performed including all 4 quadrants, the retr oareolar region, and the ipsilateral axilla. COMPARISON: Prior mammograms were reviewed. FINDINGS: No evidence of solid or significant cystic lesions in all 4 quadrants of the right breast. IMPRESSION: Negative complete right breast ultrasound Please see combined report Appropriate follow-up is to keep this patient yearly mammogram schedule, with earlier imaging if a se lf detected breast change is noted.. Her next mammogram should be in April 2022. BI-RADS Category 3 - 6 month - Probably Benign Finding: Recommend follow-up mammography in 6 months Breast Density - Category C - Heterogeneously dense Breast density Category C or D implies that the patient has dense breast tissue. Dense breast tissue can make it harder to find cancer on a mammogram. Dense breast tissue is also associated with an incr eased risk of breast cancer. This information about the result of the mammogram report was provided to the patient to raise their awareness. Use this report when you speak with the patient about their risks for breast cancer, which includes their family history. At that time, you may recommend additional screening tests (Ultrasoun d or MRI) as these tests may add significant information. A negative radiographic report should not delay biopsy if a dominant or clinically suspicious mass is present. Up to ten percent of cancers are not identified on mammography. A negative report may reinforce clinical impression. Adenosis and dense breasts may obscure an underlying neoplasm. False positive reports average 6 to 10%. Patient will receive a letter notifying them of these results.
--- NOTE | 2021-10-17 | DI.MAMMO_ITS ---
Exam(s) MG MAMMO DIAGNOSTIC UNI EXAM: MG MAMMO DIAGNOSTIC UNI -RIGHT AND COMPLETE RIGHT BREAST ULTRASOOUND CLINICAL HISTORY: 6 MO F/U RT MAMMO, F/U ABNL MAMMO, R92.8. TECHNIQUE: Unilateral spot mammographic images were obtained with 3D tomosynthesis technique and uti lizing computer aided detection (CAD). Also formed complete ultrasound examination of right breast including all 4 quadrants as well as the retroareolar region and the right axilla. COMPARISON: Prior mammograms were reviewed, the most recent being March in April 2021.. Ultrasound of April 2021 was reviewed FINDINGS: DIAGNOSTIC RIGHT BREAST MAMMOGRAM: Previously described findings upper-outer quadrant are somewhat le ss evident on the present study. Today's study does bring out another finding which has appearance o f a benign lymph node. This is approximately the 12 o'clock position COMPLETE RIGHT BREAST ULTRASOUND: There is no evidence of solid or significant cystic lesion in all 4 quadrants. Minimally prominent r etroareolar region ducts. No significant axillary adenopathy IMPRESSION: 1. No radiographic evidence of malignancy in the right breast 2. Negative complete right breast ultrasound. Appropriate follow-up is to keep this patient yearly mammogram schedule, this implying the next [facility] mammogram would be in April 2022, with earlier imaging if a self detected breast change is note d.. The patient was informed of the findings and follow-up recommendations prior to leaving the [facility] today. BI-RADS Category 3 - 6 month - Probably Benign Finding: Recommend follow-up mammography in 6 months Breast Density - Category C - Heterogeneously dense Breast density Category C or D implies that the patient has dense breast tissue. Dense breast tissue can make it harder to find cancer on a mammogram. Dense breast tissue is also associated with an incr eased risk of breast cancer. This information about the result of the mammogram report was provided to the patient to raise their awareness. Use this report when you speak with the patient about their risks for breast cancer, which includes their family history. At that time, you may recommend additional screening tests (Ultrasoun d or MRI) as these tests may add significant information. A negative radiographic report should not delay biopsy if a dominant or clinically suspicious mass is present. Up to ten percent of cancers are not identified on mammography. A negative report may reinforce clinical impression. Adenosis and dense breasts may obscure an underlying neoplasm. False positive reports average 6 to 10%. Patient will receive a letter notifying them of these results.
== END 2021-10-17 00:52 ==
PROVIDERS: PCP Nurse Practitioner Family; Visit Provider Nurse Practitioner Family
DX: R92.8 Other abnormal and inconclusive findings on diagnostic imaging of breast (principal); N60.81 Other benign mammary dysplasias of right breast
CPT/HCPCS: 76642; 77061; 77065; G0279

== ENCOUNTER 2021-11-23 12:00 | Outpatient (REF) | payer OTHER, SELFPAY ==
[2021-11-23 14:56] LABS: ALT 30 U/L (14-59); AST 18 U/L (15-37); Alkaline Phosphatase 70 U/L (46-116); BUN 12 mg/dL (7-18); Bilirubin, Total 0.3 mg/dL (0.2-1.0); CREATININE 0.8 mg/dL (0.55-1.02); Calcium 9.2 mg/dL (8.5-10.1); Calculated LDL 108 mg/dL (<100); Chloride 105 mmol/L (98-107); Cholesterol 212 mg/dL (<200); Glucose 95 mg/dL (74-106); HDL Cholesterol 91 mg/dL (40-60); Potassium 4.8 mmol/L (3.5-5.1); Sodium 141 mmol/L (136-145); Total Protein 6.8 g/dL (6.4-8.2); Triglyceride 68 mg/dL (<150)
== END 2021-11-23 12:01 | disposition home or self-care (01) ==
LOC: NCHCN 12:00
PROVIDERS: PCP Nurse Practitioner Family; Visit Provider Nurse Practitioner Family
DX: I10 Essential (primary) hypertension (principal); E78.00 Pure hypercholesterolemia, unspecified
CPT/HCPCS: 80053; 80061

== ENCOUNTER 2022-04-28 01:49 | Outpatient (CLI) | payer OTHER, SELFPAY ==
--- OUTSIDE RECORDS SUMMARY | 2022-04-28 01:50 | XMS_ITS | Encounter Summary ---
:1950 Author Organization [facility] [place] [address] Care Team Providers Name Role Phone Carlos Bennett MD Primary Care Provider Encounter Details Date Type Department Care Team Description 05/14/2012 Hospital Encounter XRay at [facility] [address] [place] [address] [place] [address] [place] [phone] Social History Tobacco Use Types Packs/Day Years Used Date Never Assessed Sex Assigned at Date Recorded Not on file documented as of this encounter Plan of Treatment Not on filedocumented as of this encounter Procedures Procedure Name Priority Date/Time Associated Diagnosis Comme nts REQUEST FOR 2ND Routine 05/14/2012 2:28 PM Result s for this READ MAMMO EDT procedure are i n the results section. documented in this encounter Results REQUEST FOR 2ND READ MAMMO (05/14/2012 2:28 PM EDT) Anatomical Region Laterality Modality Other Specimen (Source) Anatomical Collection Method Collection Time Re ceived Time Location / / Volume Laterality 05/14/2012 2:28 PM EDT Impressions 05/27/2012 5:06 PM EDT IMPRESSION: ?? This is a NEGATIVE mammogram of the Righ t breast (BIRADS Category 1). Recommendation is to resume screening ma mmography at an appropriate interval based on the patient's age and breast ca ncer risk factors. ? Film and interpretation reviewed by the attending Narrative 05/27/2012 5:06 PM EDT INTERPRETATION OF OUTSIDE MAMMOGRAMS (PERFORMED ON 02/13/12 AND 02/28/12) FROM [facility] DATED 05/16/12: ?? CLINICAL INDICATION: I have been asked t o consult on this patient by Dr. Faraz Avalos because he believes a rev iew of this study may change or alter the care of this patient with an area of focal asymmetry in the Right breast. ?? TECHNIQUE: Images of the Right breast we re submitted from 02/13/12 and 02/28/12 with comparison mammogram of 12/07/10. ?? FINDINGS: The Right breast shows a heter ogeneous density. The fibroglandular pattern is not significantly changed fro m prior examinations. ? On spot compression views of the area in question the focal asymmetry is not seen and appears to compress into normal tissue. No abnormalities are identified on this mammogram. ? Procedure Note Cristy Leung MD - 05/27/2012Formattin g of this note might be different from the original. INTERPRETATION OF OUTSIDE MAMMOGRAMS (PE RFORMED ON 02/13/12 AND 02/28/12) FROM [facility] DATED 05/16/12: CLINICAL INDICATION: I have been asked t o consult on this patient by Dr. Faraz Avalos because he believes a rev iew of this study may change or alter the care of this patient with an area of focal asymmetry in the Right breast. TECHNIQUE: Images of the Right breast we re submitted from 02/13/12 and 02/28/12 with comparison mammogram of 12/07/10. FINDINGS: The Right breast shows a heter ogeneous density. The fibroglandular pattern is not significantly changed fro m prior examinations. On spot compression views of the area in question the focal asymmetry is not seen and appears to compress into normal tissue. No abnormalities are identified on this mammogram. IMPRESSION IMPRESSION: This is a NEGATIVE mammogram of the Righ t breast (BIRADS Category 1). Recommendation is to resume screening ma mmography at an appropriate interval based on the patient's age and breast ca ncer risk factors. Film and interpretation reviewed by the attending Faraz Avalos MD IMG OUTSIDE INTERPRETATION O RDERABLES documented in this encounter Visit Diagnoses Not on filedocumented in this encounter Care Teams Groundman Relationship Specialty Start Date End Date Carlos Bennett MD PCP - General 07/26/10 documented as of this encounter
--- OUTSIDE RECORDS SUMMARY | 2022-04-28 01:50 | XMS_ITS | Encounter Summary ---
:1950 Author Organization [facility] [place] [address] Care Team Providers Name Role Phone Carlos Bennett MD Primary Care Provider Encounter Details Date Type Department Care Team Description 05/10/2012 External Results XRay at [facility] Katt Mahajan MD [address] [place] [address] Dr MARTA [address] [place] [phone] [place] [address] [phone] (Wo rk) Social History Tobacco Use Types Packs/Day Years Used Date Never Assessed Sex Assigned at Date Recorded Not on file documented as of this encounter Plan of Treatment Not on filedocumented as of this encounter Procedures Procedure Name Priority Date/Time Associated Diagnosis Comme nts ULTRASOUND SCAN (SCAN) Routine 02/28/2012 MAMMOGRAM SCAN Routine 02/28/2012 MAMMOGRAM SCAN Routine 02/13/2012 MAMMOGRAM SCAN Routine 12/07/2010 documented in this encounter Results Scan Doc: Ultrasound (02/28/2012) Anatomical Region Laterality Modality Other Narrative This result has an attachment that is no t available. Faraz Avalos MD MEDIA MGR SCAN EXT ORDR/RSLT Scan Doc: Mammogram (02/28/2012) Anatomical Region Laterality Modality Other Narrative This result has an attachment that is no t available. Farza Avalos MD MEDIA MGR SCAN EXT ORDR/RSLT Scan Doc: Mammogram (02/13/2012) Anatomical Region Laterality Modality Other Narrative This result has an attachment that is no t available. Faraz Avalos MD MEDIA MGR SCAN EXT ORDR/RSLT Scan Doc: Mammogram (12/07/2010) Anatomical Region Laterality Modality Other Narrative This result has an attachment that is no t available. Katt Mahajan MD MEDIA MGR SCAN EXT ORDR/RSLT documented in this encounter Visit Diagnoses Not on filedocumented in this encounter Care Teams Mine Manager Relationship Specialty Start Date End Date Carlos Bennett MD PCP - General 07/26/10 documented as of this encounter
--- OUTSIDE RECORDS SUMMARY | 2022-04-28 01:50 | XMS_ITS | Encounter Summary ---
:1950 Author Organization [place] [address] Care Team Providers Name Role Phone Carlos Bennett MD Primary Care Provider Encounter Details Date Type Department Care Team Description 12/07/2010 Orders Only Radiology Jose M Hope MD [facility] [place] [phone] DIAGNOSTIC RADIOLOGY [phone] [place], [place] [address] (Wo rk) Social History Tobacco Use Types Packs/Day Years Used Date Never Assessed Sex Assigned at Date Recorded Not on file documented as of this encounter Plan of Treatment Not on filedocumented as of this encounter Procedures Procedure Name Priority Date/Time Associated Diagnosis Comme nts FILM LIBRARY Routine 05/14/2012 12:58 PM Results for this STORAGE ONLY MAMMO EDT procedure are in the results section. documented in this encounter Results FILM LIBRARY- STORAGE ONLY MAMMO (05/14/2012 12:58 PM EDT) Specimen (Source) Anatomical Collection Method Collection Time Re ceived Time Location / / Volume Laterality 05/14/2012 12:58 PM EDT Narrative RAD - 03/17/2014 10:35 AM EDT This is a non-reportable exam. Procedure Note Antolin Melgar - 03/17/2014Formatti ng of this note might be different from the original. This is a non-reportable exam. Jose M Hope MD IMG FILM LIBRARY ORDERABLES Performing Organization Address City/State/ZIP Code Phon e Number [facility] [address] [facility] [place] [address] documented in this encounter Visit Diagnoses Not on filedocumented in this encounter Care Teams Green Coffee Blender Relationship Specialty Start Date End Date Carlos Bennett MD PCP - General 07/26/10 documented as of this encounter
--- OUTSIDE RECORDS SUMMARY | 2022-04-28 01:50 | XMS_ITS | Encounter Summary ---
:1950 Author Organization [facility] [place] [address] Care Team Providers Name Role Phone Carlos Bennett MD Primary Care Provider Reason for Visit Auth/Cert Specialty Diagnoses / Procedures Referred By Contact Refer red To Contact Diagnoses Chest pain, unspecified type [R07.9] Procedures PRG CATH PLMT LEFT HEART CATH & ARTS W/INJ & ANGIO IMG S&I CARDIAC CATHETERIZATION CORONARY ANGIOGRAPHY; W LHC,POSSIBLE PCI Referral ID Status Reason Start Date Expiration Date Visits Requ ested Visits Authorized [id number] 1 1 Encounter Details Date Type Department Care Team Description 06/27/2021 Surgery Volunteer Services Manager Leatha Draper MD CARDIAC CATHETERIZATION [facility] [place] [address] [place] [address] [phone] (Wo rk) Social History Tobacco Use Types Packs/Day Years Used Date Former Smoker Smokeless Tobacco: Never Used Alcohol Use Standard Drinks/Week Comments Yes 5 (1 standard drink = 0.6 oz pure alcoho l) Sex Assigned at Date Recorded Not on file documented as of this encounter Last Filed Vital Signs Vital Sign Reading Time Taken Comments Blood Pressure 145/61 06/27/2021 11:56 AM EDT Pulse 54 06/27/2021 11:56 AM EDT Temperature 37.3 ??C (99.1 ??F) 06/27/2021 11:56 AM EDT Respiratory Rate 20 06/27/2021 11:56 AM EDT Oxygen Saturation 94% 06/27/2021 11:56 AM EDT Inhaled Oxygen Concentration - - Weight 82.5 kg (181 lb 12.8 oz) 06/27/2021 11:56 AM EDT Height 154.9 cm (5' 1) 06/27/2021 11:56 AM EDT Body Mass Index 34.35 06/27/2021 11:56 AM EDT documented in this encounter Discharge Instructions Discharge Shonda Santoyo RN - 06/27/2021 4:29 PM EDT Radial Access for Heart Cath Activity If you are discharged the same day as your procedure, do not drive yourself home. Arrange to have another person drive. You may walk around when you get home, but keep your activity at a minimum until the morning. Try to avoid bending your wrist for the first 12-24 hours after the procedure to allow the artery tofully heal. Do not participate in active sports for 48 hours. Do not lift anything greater than 5 lbs. You may engage in sexual activity after 48 hours. Catheter Insertion Area Care Take the dressing off of the catheter insertion site the morning following the procedure. Leave the site open to air. If the site is oozing you may cover it with a band aid. You may take a shower if you wish. Look for signs of infection over the next several days. It is uncommon to have any visible blood at the site, any obvious bleeding is abnormal. A bruise around the wrist or small lump under the skin is normal: they generally disappear in 3-5 days. Expect some mild tenderness over the area where the catheter was inserted. You will notice this after the local anesthetic (numbing medicine) wears off. This should improve during the 24-48 hours afterthe procedure. You may use acetaminophen (tylenol) if needed. Contact your doctor if the discomfort w orsens. Problems to Watch for If there is bright red blood flowing from the catheter insertion area: *stop what you are doing *hold pressure steadily on the area for 15 minutes *call for help *if the bleeding does not stop in 15 minutes call 911 for an ambulance. If there is swelling with black and blue color at the catheter insertion site, there may be bleeding inside. Contact the doctor if there is any increase in size. Look at the insertion site for the first few days at home. Signs of infection are: *redness *swelling *yellow, white, green or brown foul smelling drainage. *increased soreness If you think there is an infection, take your temperature. Then call your doctor. The limb on the side where you had your catheterization should look and feel normal in color, sensation, and temperature. If your hand or fingers become cool, pale, blue or change color contact your doctor. If you are having numbness or tingling in your fingers or hand contact your doctor. If you feel faint or dizzy, lie down with your feet elevated. Have someone call the doctor. If you are alert, drink fluids. How to Deal with Chest Pain If you had only the cardiac catheterization, treat any angina or chest discomfort as instructed. Stop what you are doing, and sit or lie down. If prescribed, take nitroglycerin under your tongue. If the angina isn't relieved, take another nitroglycerin in 5 minutes. After another 5 minutes, a third nit roglycerin may be taken. If the angina isn't improved you should call for an ambulance to bring you to the nearest hospital emergency room. If your angina is more frequent or severe than before, contact your doctor. We usually would not expect you to have angina after an angioplasty. If you do get angina, treat it as you did before, but also contact your doctor. Return to Work The doctor will usually have told you when to return to work. If you do not perform heavy physical labor, most people can return to work in a few days. Diet Follow your previous diet unless otherwise instructed. Cardiac Risk Factor If you have coronary artery disease, it is important that you help control it by reducing your cardiac risk factors. If you smoke, we urge you to stop now. If you think this is going to be a problem, let us know so that we may help you. We have dieticians who can help you learn about a low fat, low cholesterol diet. Cardiac rehabilitation programs can help you set up a regular exercise program. Work with your doctor if you have high blood pressure or sugar diabetes to keep these under control. Medications Take your usual medications medication changes If you are taking medications prescribed by your doctor, do not take any gtzi-nri-nxbsnyq medicines or herbal preparations without first discussing this with your doctor or pharmacist. There is the possibility of side effects and interactions when these are combined. Follow Up Care Who to call with questions or problems If there are any questions or problems that you think might be related to your cardiac cath or angioplasty, contact the machinist helper marine animation camera operator by calling [facility] at . documented in this encounter Medications at Time of Discharge Medication Sig Dispensed Refills Start Date End Date betamethasone dipropionate Apply topically 0 12/04 (Diprolene) 0.05 % Cream Daily. meclizine (Antivert) 25 mg Take 25 mg by mouth 0 08/07/2017 Tablet Three times daily as needed. acetaminophen (TYLENOL) 650 Take 1,300 mg by 0 mg Tablet Sustained Release mouth daily. Do not exceed 6 tabs in 24 hours albuterol sulfate (Proair Inhale 2 puffs into 0 Digihaler) 90 mcg/actuation the lungs every 6 aero powdr breath act hours as needed. w/sensor budesonide-formoteroL Inhale 2 puffs into 0 (Symbicort) 160-4.5 the lungs 2 times mcg/actuation HFA Aerosol daily. Inhaler cholecalciferol, vitamin Take 25 mcg by mouth 0 D3, (D3-50 CHOLECALCIFEROL daily. ORAL) clonazePAM (KlonoPIN) 0.5 Take 0.5 mg by mouth 0 mg Tablet, Rapid Dissolve as needed. escitalopram oxalate Take 5 mg by mouth 0 (LEXAPRO) 5 mg Tablet daily. lactobacillus combination Take by mouth daily. 0 no.9 4 billion cell Capsule loratadine (Claritin) 10 mg Take 10 mg by mouth 0 Tablet daily. lovastatin (MEVACOR) 20 mg Take 20 mg by mouth 0 Tablet nightly. melatonin 10 mg Tablet Take 1 tablet by 0 mouth nightly. pantoprazole EC (Protonix) Take 40 mg by mouth 0 40 mg Tablet, Delayed daily. Release (E.C.) docusate sodium (Colace) Take 100 mg by mouth 0 100 mg Capsule 2 times daily. enalapriL (Vasotec) 5 mg Take 5 mg by mouth 2 0 Tablet times daily. documented as of this encounter H&P Notes Indra Haines MD - 06/27/2021 12:16 PM EDT Images from the original note were not included. Cardiac Cath Pre-Procedure Note Jeanne Nesbitt is a 71 y.o. female who was referred for coronary angiogram. She has a H HTN, HLD, former smoker who presents for coronary angiogram for chest pain. Pt has had pain for about 1 year and is difficult to characterize. Noted to be sharp and dull ache. Primarily has pain at rest. Pt underwent EKG stress with workload of 9.3 METs and 85% of predicted HR. Pt had exertional chest discomfort, Springer treadmill score of 2.8. Given equivocal stress results and chest pain, pt was referred for coronary angio. No chest pain today. ASA: 2: Patient with mild systemic disease Mallampati: III: only the base of the uvula can be seen Sedation Plan: moderate (conscious sedation) Assessment and Plan: Proceed with cardiac cath today, see progress note from today for further details. The indications, expected benefits, and potential risks of heart catheterization were reviewed in detail with the patient. The potential for , heart attack, stroke, kidney failure, hemorrhage, allergic reaction, vascular complications and infection were reviewed in detail. The possibility of stenting and other percutaneous intervention, with associated risk, was reviewed. The possible need for emergent coronary artery bypass surgery was reviewed. Alternatives were discussed and the patient's questions were answered in full. Following this discussion, the patient consented to the procedure and signed a form attesting to this, which is in the chart. Indra Haines MD PGY7 Interventional Cardiology [facility] documented in this encounter Miscellaneous Notes Brief Op Note - Lino Diego MD - 06/27/2021 12:00 PM EDT Images from the original note were not included. [facility] [place] [id number] CORONARY ANGIOGRAM AND PERCUTANEOUS CORONARY INTERVENTION REPORT Patient: Jeanne Nesbitt : 1950 MR number: [id number] Date of Service: 06/27/2021 Edge Blacker: Lino Diego MD Fellow: Irving Haines MD INDICATION: Jeanne Nesbitt is a 71 y.o. female with a history of hypertension, hyperlipidemia and Asthma. She had been having exertional chest pain. For this, she underwent an exercise EKG stress test.She was able to achieve 9 METs but developed exertional chest pain without any EKG changes. Imaging was not performed. She is now undergoing cardiac catheterization to evaluate her symptoms of chest pain. PROCEDURES PERFORMED: ??? Left heart cath, coronary angiogram. PROCEDURE: ??? The risks, benefits and alternatives of the procedures and moderate sedation were explained to the patient and informed consent was obtained. The patient was brought to the rn labor delivery and placed on the table. Time out was performed. The planned puncture sites were prepped and draped in the usual sterile fashion. The patient was sedated for the procedure. Cardiac catheterization performed. ??? Rt Radial artery access. The puncture site was infiltrated with 2 % lidocaine. The vessel was accessed using the modified Seldinger technique, a wire was threaded into the vessel, and a 6 Fr glide sheath slender was advanced over the wire into the vessel. Vasodilators and heparin were given after access obtained. ??? Left coronary artery angiography. A 5 Fr Jose catheter was advanced to the aorta and positionedin the vessel ostia under fluoroscopic guidance. Angiography was performed in multiple projections. Intracoronary nitroglycerin was given in order to achieve maximal vasodilatation. ??? Right coronary artery angiography. A 5 Fr Jose catheter was advanced to the aorta and positioned in the vessel ostia under fluoroscopic guidance. Angiography was performed in multiple projections.Intracoronary nitroglycerin was given in order to achieve maximal vasodilatation. ??? Weight-based heparin was given for procedural anticoagulation to maintain an ACT of 250 seconds by Hemochron throughout the case. ??? Contrast given. 50 ml Optiray 350. ??? At the end of the case, a Trans Radial Band was applied to the right wrist and the arterial sheath was removed with hemostasis obtained. The patient was transported to the post-procedure holding area in stable condition. ??? There were no procedural complications. ??? I provided direct yrcq-gy-tcue monitoring of conscious sedation which was administered by an independent trained nurse. RESULTS: Rt Subclavian vessel: ?? She was found to have tortuosity of the Rt subclavian with a loop of this vessel. Coronary circulation: The coronary circulation is right dominant. There was mild to moderate coronary disease: ?? Left main: Angiography showed mild diffuse disease. ?? LAD: Angiography showed mild diffuse disease. The Diag1 showed mild diffuse disease. ?? Circumflex: Angiography showed ostial 30% lesion. A high OM1 (almost a Ramus) showed an ostial 30-40% lesion. ?? RCA: Angiography showed a 30% mid RCA lesion. The distal RCA has a 20% lesion just before the RPD/RPL bifurcation. The RPD and RPL have mild diffuse disease. SUMMARY AND THERAPEUTIC RECOMMENDATIONS: ??? Jeanne Nesbitt presents with chest pain, and a negative stress test. She is active and was able to achieve 9 METs on the treadmill but did develop chest pain. She was found to have mild to edoogifq37-63% ostial LCX, ostial high OM1 (almost a Ramus) and mid RCA lesions. We will continue to medically manage her moderate, non-obstructive coronary disease. ??? The case was reviewed and discussed with the patient and will be discussed with Dr. Candis Jorge. ??? I advised cardiac rehab. ??? I was present during the entire procedure and personally dictated or confirmed the above report. Lino Diego MD MS LAKSHMI 06/27/2021 12:00 PM documented in this encounter Plan of Treatment Not on filedocumented as of this encounter Procedures Procedure Name Priority Date/Time Associated Comments Diagnosis CARDIAC CATHETERIZATION Routine 06/27/2021 1:45 Chest pain, R esults for this PM EDT unspecified type procedure a re in the results section. POCT GLUCOSE Routine 06/27/2021 1:36 Results for this PM EDT procedure are i n the results section. EKG 12-LEAD Routine 06/27/2021 11:58 Chest pain, Results for this AM EDT unspecified type procedure a re in the results section. documented in this encounter Results CARDIAC CATHETERIZATION (06/27/2021 1:45 PM EDT) Specimen (Source) Anatomical Location Collection Method / Collectio n Time Received Time / Laterality Volume Narrative CARDIOMAC SYSTEM - 06/27/2021 2:14 PM ED T ?[facility] ? Cardiac Cathete rization/Intervention Report ? Patient Name: Dixie, Jeanne J. ? Procedure Date: 06/27/2021 ? A #: [id number] ? Primary Physician: Diego, Lino P ? Case #: [id number] ? File Name: [id number] ? Catheterization Order Number: [id number] ? [facility] ? Final Report [place], [place] ? Patient Name: ? Jeanne J. Kristio n ?ID#: ?[id number] ? : ?1950 ? Procedure Date: ? June 27 ? Case #: ? [id number] ? Room: ? 1 ? Case Physician: ? Lino Diego M. D. ?Start: ?12:49 ?Fellow: ? Vincent E G acad, M.D. ?Admission: ??06/27/2021 ? Referring Physician: ??Candis Jorge MDaryD. ? Procedures: ?* Coronary Angiography ? History ?Jeanne Nesbitt is a 71 year ol d woman. She has hypertension and a family ?history of coronary artery dise ase. The patient's smoking status is ?Never. She also has hypercholes terolemia managed with lipid therapy. ?Prior to the initiation of this procedure, the patient was designated as ?ASA Class III. The [facility] l frailty scale is 3: Managing Well. ? Diagnostic Tests: ?Electrocardiography: ? EKG was assessed by ECG. EKG was Normal. ?Stress or Imaging Studies: ? A stress test without im aging was performed on 06/02/2021 and was ? Indeterminant. ?Medications Prior to Procedure: ? Angiotensin Converting E nzyme Inhibitor and Statin. ? Indications for Diagnostic Cath: ?The priority of the diagnostic procedure was Elective. The indication for ?the rn labor delivery visit is new onset angina less than or equal to 2 months. ?Chest pain symptom assessment w as: Atypical Angina. ? Technique: ?A 6 SLFr sheath was inserted in the right radial artery utilizing the ?Seldinger technique. The left c oronary artery was injected utilizing a ?5Fr IL 3.5 catheter. A 5Fr IR 1 .0 catheter was used to inject the right ?coronary artery. Left ventricul ar pressure was performed utilizing a 5Fr ?JOSE RADIAL catheter. 6,000 un its of heparin were administered. A total ?of 100cc of Omnipaque were open ed, 49cc of Omnipaque were administered ?and 51cc of Omnipaque were wast ed. Radiation: Fluoro time was 17.9 ?minutes, dose area product was 30,800 mGYcm2 and air kerma was 416 mGY. ?See the case log for additional details. ?The patient received the follow ing medications prior to and during the ?procedure: ? Unfractionated Heparin. ? Hemodynamics: ?Left Heart Pressures ? Resting: ? Syst D iast ? EDP ?a ?v ? m ?Ao 186 ?? 93 ? Coronary Angiography: ?Dominance: Right ?Left Main ? There was mild diffuse ( <=25% stenosis) disease of the entire vessel ? segment of the left main artery. ?Left Anterior Descending ? There was mild diffuse ( <=25% stenosis) disease of the entire vessel ? segment of the left ante rior descending artery (LAD). ?Left Circumflex ? There was a 30% stenosis of the ostial segment of the left ? circumflex artery (LCX). ? There was a 30% stenosis of the ostial segment of the first obtuse ? marginal branch (OM1) of the LCX. ?Right Coronary Artery ? There was a 30% stenosis of the mid segment of the right coronary ? artery (RCA). ? Vascular Access: ?Vascular Access Management: ? Mechanical Compression o f the right radial artery access site was ? performed. ? Conclusions: ?* Nonobstructive coronary arter y disease ? Complications/Events: ?The patient had no complication s during this procedure. ? Comments: ?Jeanne Nesbitt presents with ch est pain, and a negative stress test. She ?is active and was able to achie ve 9 METs on the treadmill but did develop ?chest pain. She was found to gonsales ve mild to moderate 30-40% ostial LCX, ?ostial high OM1 (almost a Ramus ) and mid RCA lesions. We will continue to ?medically manage her moderate, non-obstructive coronary disease. ?The attending physician was presen t for the entire procedure. ?Dr. Lino Diego M.D. was present during the moderate sedation intraservice ?time as documented by the sedation nurse. ??Case time = 00:43. ?Dr. Lino Diego M.D. performed th e coronary angiography. ? Lino Diego M.D. ? Electronically Signed by: Naresh Rajptu ? Report Finalized: 06/27/2021 ??14:07 ? Procedure Note Lino Diego MD - 06/27/2021 [facility] Cardiac Catheterization/Intervention Re port Patient Name: Jeanne Nesbitt Procedure Date: 06/27/2021 A #: [id number] Primary Physician: Lino Diego Case #: [id number] File Name: [id number] Catheterization Order Number: [id number] [facility] Final Report [place], [place] Patient Name: Jeanne Nesbitt ID#: [id number] : 1950 Procedure Date: June 27, 2021 Case #: [id number] Room: 1 Case Physician: Lino Diego M.D. Start: 12:49 Fellow: Indra Haines M.D. Admission : 06/27/2021 Referring Physician: Candis Jorge M.D. Procedures: * Coronary Angiography History Jeanne Nesbitt is a 71 year old woman. She has hypertension and a family history of coronary artery disease. The patient's smoking status is Never. She also has hypercholesterolemi a managed with lipid therapy. Prior to the initiation of this procedu re, the patient was designated as ASA Class III. The [facility] clinical frailt y scale is 3: Managing Well. Diagnostic Tests: Electrocardiography: EKG was assessed by ECG. EKG was Normal . Stress or Imaging Studies: A stress test without imaging was perfo rmed on 06/02/2021 and was Indeterminant. Medications Prior to Procedure: Angiotensin Converting Enzyme Inhibitor and Statin. Indications for Diagnostic Cath: The priority of the diagnostic procedur e was Elective. The indication for the rn labor delivery visit is new onset angina less than or equal to 2 months. Chest pain symptom assessment was: Atyp ical Angina. Technique: A 6 SLFr sheath was inserted in the rig ht radial artery utilizing the Seldinger technique. The left coronary artery was injected utilizing a 5Fr IL 3.5 catheter. A 5Fr IR 1.[address] was used to inject the right coronary artery. Left ventricular press ure was performed utilizing a 5Fr JOSE RADIAL catheter. 6,000 units of h eparin were administered. A total of 100cc of Omnipaque were opened, 49cc of Omnipaque were administered and 51cc of Omnipaque were wasted. Radi ation: Fluoro time was 17.9 minutes, dose area product was 30,800 m GYcm2 and air kerma was 416 mGY. See the case log for additional details . The patient received the following medi cations prior to and during the procedure: Unfractionated Heparin. Hemodynamics: Left Heart Pressures Resting: Syst Diast EDP a v m Ao 186 93 Coronary Angiography: Dominance: Right Left Main There was mild diffuse (<=25% stenosis) disease of the entire vessel segment of the left main artery. Left Anterior Descending There was mild diffuse (<=25% stenosis) disease of the entire vessel segment of the left anterior descending artery (LAD). Left Circumflex There was a 30% stenosis of the ostial segment of the left circumflex artery (LCX). There was a 30% stenosis of the ostial segment of the first obtuse marginal branch (OM1) of the LCX. Right Coronary Artery There was a 30% stenosis of the mid seg ment of the right coronary artery (RCA). Vascular Access: Vascular Access Management: Mechanical Compression of the right rad ial artery access site was performed. Conclusions: * Nonobstructive coronary artery diseas e Complications/Events: The patient had no complications during this procedure. Comments: Jeanne Nesbitt presents with chest pain , and a negative stress test. She is active and was able to achieve 9 MET s on the treadmill but did develop chest pain. She was found to have mild to moderate 30-40% ostial LCX, ostial high OM1 (almost a Ramus) and mi d RCA lesions. We will continue to medically manage her moderate, non-obst ructive coronary disease. The attending physician was present for the entire procedure. Dr. Lino Diego M.D. was present durin g the moderate sedation intraservice time as documented by the sedation nurs e. Case time = 00:43. Dr. Lino Diego M.D. performed the cor onary angiography. Lino Diego M.D. Electronically Signed by: Naresh Rajput Report Finalized: 06/27/2021 14:07 Lino Diego MD CARDIAC CATH ORDERABLES Performing Organization Address City/State/ZIP Code Phon e Number CARDIOMAC SYSTEM POCT Glucose (06/27/2021 1:36 PM EDT) P athologist Signature POC Glucose 82 65 - 199 [facility] mg/dL [facility] Comment: Supplemental ranges: <140 mg/dL before meals <180 mg/dL all other times of the day Specimen Anatomical Collection Method Collection Time Receive d Time (Source) Location / / Volume Laterality Blood 06/27/2021 1:36 PM 1:36 EDT PM EDT Lino Diego MD POINT OF CARE TEST ORDERABLE S Performing Organization Address City/State/[place] [address] EKG 12 Lead (06/27/2021 11:58 AM EDT) Component Value Ref Range Test Analysis Performed Pathologis t Method Time At Signature Ventricular rate 59 BPM MUSE SYSTEM Atrial Rate 59 BPM MUSE SYSTEM P-R Interval 190 ms MUSE SYSTEM QRS Duration 90 ms MUSE SYSTEM Q-T Interval 424 ms MUSE SYSTEM QTC Calculated 419 ms MUSE SYSTEM (Bezet) Calculated P [place] 59 degrees MUSE SYSTEM Calculated R [place] 13 degrees MUSE SYSTEM Calculated T [place] 73 degrees MUSE SYSTEM INTERPRETATION Sinus bradycardia MUSE SY STEM Otherwise normal ECG No previous ECGs available Confirmed by Geneva Seay ([id number]) on 06/27/2021 3:46 :52 PM Specimen Anatomical Collection Method Collection Time Receive d Time (Source) Location / / Volume Laterality 06/27/2021 11:58 06/27/2021 3:46 AM EDT PM EDT Lino Diego MD ECG ORDERABLES Performing Organization Address City/State/ZIP Code Phon e Number MUSE SYSTEM documented in this encounter Visit Diagnoses Diagnosis Chest pain, unspecified type Chest pain, unspecified type documented in this encounter Administered Medications Inactive Administered Medications - up to 3 most recent administrations Medication Order MAR Action Action Date Dose Rate Site aspirin chewable tablet Given 06/27/2021 12:32 PM EDT 324 mg ONCE PRN, Starting on Sun06/27/21 at 1232, Until Sun06/27/21 at 1340, Cath (Intra-Procedure), Routine fentaNYL (pf) (50 mcg/mL) multi-dose Given 06/27/2021 1:22 PM ED T 12.5 mcg injection ONCE PRN, Starting on 06/27/21 at 1236, Until Sun06/27/21 at 1340, Cath (Intra-Procedure), Routine Given 06/27/2021 12:36 PM EDT 25 mcg heparin (porcine) (1,000 units/mL) Given 06/27/2021 1:14 PM EDT 1,000 Units injection ONCE PRN, Starting on Sun06/27/21 at 1255, Until Sun06/27/21 at 1340, Cath (Intra-Procedure), Routine Given 06/27/2021 12:55 PM EDT 5,000 Units iohexoL (Omnipaque) (350 mg/mL) injection Given 06/27/2021 1:36 PM EDT 49 mLs solution ONCE PRN, Starting on Sun06/27/21 at 1336, Until Sun06/27/21 at 1340, Cath (Intra-Procedure), Routine midazolam (pf) (Versed) (1 mg/mL) multi-dose Given 12:36 PM EDT 1 mg injection ONCE PRN, Starting on Sun06/27/21 at 1236, Until Sun06/27/21 at 1340, Cath (Intra-Procedure), Routine nitroGLYcerin 100 mcg/mL intracoronary Given 06/27/2021 1:28 PM EDT 150 mcg dilution ONCE PRN, Starting on Sun06/27/21 at 1250, Until Sun06/27/21 at 1340, Cath (Intra-Procedure), Routine Given 06/27/2021 12:50 PM EDT 150 mcg sodium chloride 0.9% infusion New Bag 06/27/2021 1:57 PM EDT 100 mL/hr 100 mL/hr 100 mL/hr, Intravenous, CONTINUOUS, Starting on Sun06/27/21 at 1415, Until Sun06/27/21 at 1614, Recovery (Recovery-Hospital Unit) verapamiL (Isoptin) (2.5 mg/mL) injectio n Given 06/27/2021 1:23 PM EDT 2.5 mg ONCE PRN, Starting on Sun06/27/21 at 1250, Until Sun06/27/21 at 1340, Administer over 2 Minutes, Cath (Intra-Procedure) Given 06/27/2021 12:50 PM EDT 2.5 mg documented in this encounter Active and Recently Administered Medications Times are shown in EDT. Scheduled Medication Order 06/25/2021 06/26/2021 06/27/2021 acetaminophen (Tylenol) tablet 650 mg 1500 (Due) 650 mg, Oral, ONCE, 1 dose, On 06/27 at 1500, Maximum dose of acetaminophen is 4000 mg from all sources in 24 hours. When ordered for pain, acetaminophen should be given even when other ordered pain medications are indicated. , Routine Continuous Medication Order 06/25/2021 06/26/2021 06/27/2021 sodium chloride 0.9% infusion 13 57 (New Bag - Provider: Lino Macedo RN) 100 mL/hr, Intravenous, CONTINUOUS, Star ting on Sun06/27/21 at 1415, Until Sun06/27/21 at 1614, Recovery (Recovery-Hospital Unit) PRN Medication Order 06/25/2021 06/26/2021 06/27/2021 aspirin chewable tablet (CANCELED) 1232 (Given - Provider: Ronnie Swenson RN) ONCE PRN, Starting on Sun06/27/21 at 12 32, Until Sun06/27/21 at 1340, Cath (Intra-Procedure), Routine fentaNYL (pf) (50 mcg/mL) multi-dose injection (CANCELED) 1236 (Given - Provider: Ronnie Swenson RN)1322 (Given - Provider: Ronnie Swenson RN) ONCE PRN, Starting on Sun06/27/21 at 12 36, Until Sun06/27/21 at 1340, Cath (Intra-Procedure), Routine heparin (porcine) (1,000 units/mL) injection (CANCELED) 1255 (Given - Provider: Ronnie Swenson RN)1314 (Given - Provider: Ronnie Swenson RN) ONCE PRN, Starting on Sun06/27/21 at 12 55, Until Sun06/27/21 at 1340, Cath (Intra-Procedure), Routine iohexoL (Omnipaque) (350 mg/mL) injection solution (CANCELED) 1336 (Given - Provider: Indra Haines MD) ONCE PRN, Starting on Sun06/27/21 at 13 36, Until Sun06/27/21 at 1340, Cath (Intra-Procedure), Routine midazolam (pf) (Versed) (1 mg/mL) multi-dose injection (CANCELED ) 1236 (Given - Provider: Ronnie Swenson RN) ONCE PRN, Starting on Sun06/27/21 at 12 36, Until Sun06/27/21 at 1340, Cath (Intra-Procedure), Routine nitroGLYcerin (Nitrostat) disintegrating tablet 0.4 mg 0.4 mg, Sublingual, EVERY 5 MIN PRN, Sta rting on Sun06/27/21 at 1350, Until Sun06/27/21 at 1920, Chest pain, May repeat every 5 minutes for a total of three doses. Notify provider if chest pain not re lieved with nitroglycerin. Do not admini ster nitroglycerin if the patient has received or taken phosphodiesterase (PDE-5) inhibitors such as sildenafil, tadalafil or vardenafil within the last 24 to 72 hours., Recovery (Recovery-Hospital Unit), Routine nitroGLYcerin 100 mcg/mL intracoronary dilution (CANCELED) 1250 (Given - Provider: Indra Haines MD)1328 (Given - Provider: Indra Haines MD) ONCE PRN, Starting on Sun06/27/21 at 12 50, Until Sun06/27/21 at 1340, Cath (Intra-Procedure), Routine verapamiL (Isoptin) (2.5 mg/mL) injection (CANCELED) 1250 (Given - Provider: Indra Haines MD)1323 (Given - Provider: Indra Haines MD) ONCE PRN, Starting on Sun06/27/21 at 12 50, Until Sun06/27/21 at 1340, Administer over 2 Minutes, Cath (Intra-Procedure) No Frequency Medication Order 06/25/2021 06/26/2021 06/27/2021 acetaminophen (Tylenol) 325 mg tablet 1500 (Due) 1 dose, Starting on Sun06/27/21 at 1448 , Until Tu06/28/21 at 0259, BETH SYKES: cabinet override documented in this encounter Care Teams Streets And Buildings Decorator Relationship Specialty Start Date End Date Carlos Bennett MD PCP - General 07/26/10 documented as of this encounter
--- OUTSIDE RECORDS SUMMARY | 2022-04-28 01:50 | XMS_ITS | Encounter Summary ---
:1950 Author Organization [facility] [place] [address] Care Team Providers Name Role Phone Carlos [...] Expiration Date Visits Requ ested Visits Authorized [id number] 1 1 Encounter Details Date Type Department Care Team Description 06/27/2021 Laboratory Appointment Lab 3L [facility] Chest pain, [facility] [place] [address] Social History Tobacco Use Types Packs/Day Years Used Date Former Smoker Smokeless Tobacco: Never Used Alcohol Use Standard Drinks/Week Comments Yes 5 (1 standard drink = 0.6 oz pure alcoho l) Sex Assigned at Date Recorded Not on file documented as of this encounter Plan of Treatment Not on filedocumented as of this encounter Procedures Procedure Name Priority Date/Time Associated Diagnosis Comme nts BMP W/FASTING STAT 06/27/2021 10:32 AM Chest pain, Results for this GLUCOSE EDT unspecified type procedure a re in the results section. HEMOGRAM STAT 06/27/2021 10:32 AM Chest pain, Results for this EDT unspecified type procedure a re in the results section. DIFFERENTIAL, STAT 06/27/2021 10:32 AM Chest pain, Results for this AUTOMATED EDT unspecified type procedure a re in the results section. HC CBC,PLT & AUTO STAT 06/27/2021 10:32 AM Chest pain, DIFF EDT unspecified type documented in this encounter Results Differential, Automated (06/27/2021 10:32 AM EDT) athologist Signature Neutrophils % 54.9 % [facility] Neutr Abs (ANC) 2.82 1.70 - [facility] 6.10 [facility] x10(3)/[facility] LABORATORY Lymphocytes % 35.5 % [facility] Lymphocytes Abs 1.8 0.9 - 3.[address] [facility] x10(3)/[facility] LABORATORY Monocytes % 6.8 % [facility] Monocyte Abs 0.4 0.3 - 0.[address] [facility] x10(3)/[facility] LABORATORY Eosinophils % 1.8 % [facility] Eosinophils Abs 0.1 0.0 - 0.[address] [facility] x10(3)/[facility] LABORATORY Basophils % 0.6 % [facility] Basophils Abs 0.0 0.0 - 0.[address] [facility] x10(3)/[facility] LABORATORY Immature Gran % 0.40 % [facility] Comment: Immature granulocytes(IG's)percentage an d absolute count will include metamyelocytes, myelocytes, and promyelo cytes. Blood smears from CBCs yielding IG's will be scanned manually for concor dance. If this scan disagrees with the automated IG or if promyelocytes are not ed, a manual differential will be performed. Kirstin Gran Abs 0.02 0.00 - 0.04 x10(3)/[facility] Specimen Anatomical Collection Method Collection Time Receive d Time (Source) Location / / Volume Laterality Blood 06/27/2021 10:32 06/27/2021 AM EDT 10:49 AM EDT Resulting Agency Comment Spec In Lab Sherri ALARCON HEMATOLOGY ORDERABLES Performing Organization Address City/State/Z[place] [address] (ABNORMAL) Hemogram (06/27/2021 10:32 AM EDT) Analysis Performed At Patho logist Time Signature WBC 5.1 4.0 - 9.[address] [facility] x10(3)/[facility] LABORATORY RBC 4.33 4.00 - TOO [place] 5.21 [facility] x10(6)/[facility] LABORATORY Hemoglobin 13.0 11.7 - [facility] 15.5 g/dL [facility] Hematocrit 40.2 35.7 - [facility] 45.8 % [facility] MCV 92.8 82.6 - [facility] 94.4 [facility] MCH 30.0 27.1 - [facility]0 pg [facility] MCHC 32.3 31.7 - [facility] 35.0 g/dL [facility] Platelets 144 (L) 145 - [address] [facility] x10(3)/[facility] LABORATORY RDWSD 49.7 (H) 37.0 - [facility] 46.0 [facility] RDWCV 14.5 (H) 11.5 - [facility] 14.1 % [facility] MPV 10.5 7.6 - 12.9 [facility] LABORATORY nRBC % Auto 0.0 % [facility] nRBC Abs Auto 0.000 0.000 - [facility] 0.000 [facility] x10(3)/[facility] LABORATORY Specimen Anatomical Collection Method Collection Time Receive d Time (Source) Location / / Volume Laterality Blood 06/27/2021 10:32 06/27/2021 AM EDT 10:49 AM EDT Resulting Agency Comment Spec In Lab Sherri ALARCON HEMATOLOGY ORDERABLES Performing Organization Address City/State/ZIP [place] [address] BMP w/fasting Glucose (06/27/2021 10:32 AM EDT) P athologist Signature Glucose 99 65 - [address] [facility] Fasting mg/dL [facility] Comment: ?Fasting* Glucose Interpretive C riteria Normal ?65-99 mg/dL Impaired Fasting glucose ?100-125 mg/dL Consistent with Diabetes Mellitus ? >or= 126 mg/dL *Fasting is defined as no caloric intake for at least 8 hours In the absence of unequivocal hypergly cemia a plasma glucose value of >or= 126 mg/dL should be repeated on a subseq uent day. Diagnosis and Classification of Diabetes Mellitus, Position Statement from the [place] [employer]. ??Diabete s Care, Volume 33, Supplement 1, Sep 2009 BUN 10 8 - 18 mg/dL [facility] Creatinine 0.77 0.70 - 1.20 mg/dL [facility] Sodium 141 135 - 145 mmol/L [facility] Potassium 4.6 3.5 - 5.0 mmol/L [facility] Comment: Please note: ??Patients with WBC >100,00 0 may have falsely elevated Potassium levels. ??For accurate Potassium quantif ication in these patients send serum separator tube (gold top) for subsequent determinations. ??Contact the Clinical Chemistry Laboratory if there are any qu estions. Chloride 104 98 - 107 mmol/L [facility] CO2 28 22 - 31 mmol/L [facility] Anion Gap 9 5 - 15 mmol/L [facility] Calcium 9.6 8.5 - 10.5 mg/dL [facility] Estimated GFR 78 >=60 mL/min/1.73 m?? [facility] Comment: This patient? s estimated glomerular filtration rate (eGFR) is between 78 mL/min/1.73 m2 (patients with less muscl e mass) and 90 mL/min/1.73 m2 (patients with more muscle mass) as determined by the CKD-EPI equation. Assessment of eGFR is not appropriate when creatinine concentrations are rapidly changing. For clinical decisions where creatinine clearance will affect therapy, a 24-hour urine creatinine clearance may b e advised. Assignment of CKD stage 1 - 5 for patien ts with an eGFR near the transition point between stages may be based on cli nical assessment of muscle mass and symptoms in addition to eGFR. Specimen Anatomical Collection Method Collection Time Receive d Time (Source) Location / / Volume Laterality Blood 06/27/2021 10:32 06/27/2021 AM EDT 10:49 AM EDT Resulting Agency Comment Spec In Lab Ruben Guzman MD CHEMISTRY ORDERABLES Performing Organization Address City/State/[place] [address] documented in this encounter Visit Diagnoses Diagnosis Chest pain, unspecified type documented in this encounter Care Teams Aging Box Hand Relationship Specialty Start Date End Date Carlos Bennett MD PCP - General 07/26/10 documented as of this encounter
--- OUTSIDE RECORDS SUMMARY | 2022-04-28 01:50 | XMS_ITS | Encounter Summary ---
:1950 Author Organization [facility] [place] [address] Care Team Providers Name Role Phone Carlos Bennett MD Primary Care Provider Encounter Details Date Type Department Care Team Description 06/27/2021 Orders Only Cardiology at [facility] Sherri Allen, Chest pain, [facility] [place] [address] [place], [place] [address] Social History Tobacco Use Types Packs/Day Years Used Date Former Smoker Smokeless Tobacco: Never Used Alcohol Use Standard Drinks/Week Comments Yes 5 (1 standard drink = 0.6 oz pure alcoho l) Sex Assigned at Date Recorded Not on file documented as of this encounter Plan of Treatment Not on filedocumented as of this encounter Results BMP w/fasting Glucose (06/27/2021 10:32 AM EDT) athologist Signature Glucose 99 65 - 99 [facility] Fasting mg/dL [facility] Comment: ?Fasting* Glucose Interpretive C zackaryeria Normal ?65-99 mg/dL Impaired Fasting glucose ?100-125 mg/dL Consistent with Diabetes Mellitus ? >or= 126 mg/dL *Fasting is defined as no caloric intake for at least 8 hours In the absence of unequivocal hypergly cemia a plasma glucose value of >or= 126 mg/dL should be repeated on a subseq uent day. Diagnosis and Classification of Diabetes Mellitus, Position Statement from the [place] [employer]. ??Diabete s Care, Volume 33, Supplement 1, Sep 2009 BUN 10 8 - 18 mg/dL [facility] Creatinine 0.77 0.70 - 1.20 mg/dL [facility] Sodium 141 135 - 145 mmol/L [facility] Potassium 4.6 3.5 - 5.0 mmol/L [facility] Comment: Please note: ??Patients with WBC >100,00 0 may have falsely elevated Potassium levels. ??For accurate Potassium quantif ication in these patients send serum separator tube (gold top) for subsequent determinations. ??Contact the Clinical Chemistry Laboratory if there are any qu estions. Chloride 104 98 - 107 mmol/L [facility] CO2 28 22 - 31 mmol/L [facility] Anion Gap 9 5 - 15 mmol/L [facility] Calcium 9.6 8.5 - 10.5 mg/dL [facility] Estimated GFR 78 >=60 mL/min/1.73 m?? [facility] Comment: This patient? s estimated [...] Organization Address City/State/[place] [address] documented in this encounter Visit Diagnoses Diagnosis Chest pain, unspecified type documented in this encounter Care Teams Sausage Stuffer Relationship Specialty Start Date End Date Carlos Bennett MD PCP - General 07/26/10 documented as of this encounter
--- OUTSIDE RECORDS SUMMARY | 2022-04-28 01:50 | XMS_ITS | Encounter Summary ---
:1950 [place] [address] Care Team Providers Name Role Phone Carlos Bennett MD Primary Care Provider Encounter Details Date Type Department Care Team Description 06/22/2021 Orders Only Forge Operator Helper Sherri Hendricks, Chest pain , [facility] unspecified type [facility] [place] [address] [place] [address] [phone] Social History Tobacco Use Types Packs/Day Years Used Date Never Assessed Sex Assigned at Date Recorded Not on file documented as of this encounter Plan of Treatment Not on filedocumented as of this encounter Visit Diagnoses Diagnosis Chest pain, unspecified type documented in this encounter Care Teams Infectious Disease Technician Relationship Specialty Start Date End Date Carlos Bennett MD PCP - General 07/26/10 documented as of this encounter
--- OUTSIDE RECORDS SUMMARY | 2022-04-28 01:50 | XMS_ITS | Encounter Summary ---
:1950 Author Organization [facility] [place] [address] Care Team Providers Name Role Phone Carlos [...] Expiration Date Visits Requ ested Visits Authorized [id number] 1 1 Encounter Details Date Type Department Care Team Description 06/27/2021 Hospital Encounter Same Day Program at Kay Diego MD [facility] [place] [id number] [phone] Social History Tobacco Use Types Packs/Day Years Used Date Former Smoker Smokeless Tobacco: Never Used Alcohol Use Standard Drinks/Week Comments Yes 5 (1 standard drink = 0.6 oz pure alcoho l) Sex Assigned at Date Recorded Not on file documented as of this encounter Last Filed Vital Signs Vital Sign Reading Time Taken Comments Blood Pressure 151/71 06/27/2021 4:26 PM EDT Pulse 56 06/27/2021 4:26 PM EDT Temperature 36.8 ??C (98.2 ??F) 06/27/2021 4:26 PM EDT Respiratory Rate 16 06/27/2021 4:26 PM EDT Oxygen Saturation 96% 06/27/2021 4:26 PM EDT Inhaled Oxygen Concentration - - Weight [...] by your doctor, do not take any yymm-dez-[id number] medicines or herbal preparations without first discussing this with your doctor or pharmacist. There is the possibility of side effects and interactions when these are combined. Follow Up Care Who to call with questions or problems If there are any questions or problems that you think might be related to your cardiac cath or angioplasty, contact the garbage collection supervisor brick mason by calling [facility] at . documented in this encounter Medications [...] chart. Indra Haines MD PGY7 Interventional Cardiology [facility] documented in this encounter Miscellaneous Notes Brief Op Note - Lino Diego MD - 06/27/2021 12:00 PM EDT Images from the original note were not included. [facility] [place] [id number] CORONARY ANGIOGRAM AND PERCUTANEOUS CORONARY INTERVENTION REPORT Patient: Jeanne Nesbitt : 1950 MR number: [id number] Date of Service: 06/27/2021 Corporate Giving Manager: Lino Diego MD Fellow: Irving Haines MD INDICATION: eJanne Nesbitt is a 71 y.o. female with [...] obtained. The patient was brought to the optical lab technician and placed on the table. Time out [...] no procedural complications. ??? I provided direct [id number]-ct-[id number] monitoring of conscious sedation which was administered [...] She was found to have mild to pafildch17-76% ostial LCX, ostial high OM1 (almost a [...] SYSTEM - 06/27/2021 2:14 PM ED T ?[facility] ? Cardiac Cathete rization/Intervention Report ? Patient Name: [place], Jeanne J. ? Procedure Date: 06/27/2021 ? A #: [id number] ? Primary Physician: Diego, Lino P ? Case #: [id number] ? File Name: [id number] ? Catheterization Order Number: [id number] ? [facility] ? Final Report [place], [place] ? Patient Name: ? Jeanne Johnson. Shanell n ?ID#: ?[id number] ? : ?1950 ? Procedure Date: ? [...] was designated as ?ASA Class III. The [facility] l frailty scale is 3: Managing Well. [...] procedure was Elective. The indication for ?the optical lab technician visit is new onset angina less than [...] non-obstructive coronary disease. ?The attending physician was rg paez for the entire procedure. ?Dr. Lino Diego M.D. was present during the moderate sedation intraservice ?time as documented by the sedation nurse. ??Case time = 00:43. ?Dr. Lino Diego M.D. performed th e coronary angiography. ? Lino Diego M.D. ? Electronically Signed by: Naresh Rajput ? Report Finalized: 06/27/2021 ??14:07 ? Procedure Note Lino Diego MD - 06/27/2021 [facility] Cardiac Catheterization/Intervention Re port Patient Name: Jeanne Nesbitt Procedure Date: 06/27/2021 A #: [id number] Primary Physician: Lino Diego Case #: [id number] File Name: [id number] Catheterization Order Number: [id number] [facility] Final Report [place], [place] Patient Name: Jeanne Samuelsulton ID#: [id number] : 1950 Procedure Date: June 27, 2021 Case #: [id number] Room: 1 Case Physician: Lino Diego M.D. [...] was designated as ASA Class III. The [facility] clinical frailt y scale is 3: Managing [...] e was Elective. The indication for the optical lab technician visit is new onset angina less than [...] procedure. Dr. Lino Diego M.D. was present albertoin the moderate sedation intraservice time as documented by the sedation nurs e. Case time = 00:43. Dr. Lino Diego M.D. performed the cor onary angiography. Lino Diego M.D. Electronically Signed by: Naresh Rajput Report Finalized: 06/27/2021 14:07 Lino Diego MD CARDIAC CATH ORDERABLES Performing Organization Address City/State/ZIP Code Phon e Number CARDIOMAC SYSTEM POCT Glucose (06/27/2021 1:36 PM EDT) athologist Signature POC Glucose 82 65 - 199 [facility] mg/dL [facility] Comment: Supplemental ranges: <140 mg/dL before meals <180 mg/dL all other times of the day Specimen Anatomical Collection Method Collection Time Receive d Time (Source) Location / / Volume Laterality Blood 06/27/2021 1:36 PM 1:36 EDT PM EDT Lino Diego MD POINT OF CARE TEST ORDERABLE S Performing Organization Address City/State/ZIP Code Phon e Number [place] [id number] EKG 12 Lead (06/27/2021 11:58 AM EDT) Component Value Ref Range Test Analysis Performed Pathologis t Method Time At Signature Ventricular rate 59 BPM MUSE SYSTEM Atrial Rate 59 BPM MUSE SYSTEM P-R Interval 190 ms MUSE SYSTEM QRS Duration 90 ms MUSE SYSTEM Q-T Interval 424 ms MUSE SYSTEM QTC Calculated 419 ms MUSE SYSTEM (Bezet) Calculated P [place] 59 degrees MUSE SYSTEM Calculated R [place] 13 degrees MUSE SYSTEM Calculated T [place] 73 degrees MUSE SYSTEM INTERPRETATION Sinus bradycardia MUSE SY STEM Otherwise normal ECG No previous ECGs available Confirmed by Geneva Seay ([id number]) on 06/27/2021 3:46 :52 PM Specimen Anatomical [...] MAR Action Action Date Dose Rate Site sodium chloride 0.9% New Bag 06/27/2021 1:57 PM EDT 100 mL/hr 100 mL/hr infusion 100 mL/hr, Intravenous, CONTINUOUS, Starting on Sun06/27/21 at 1415, Until Sun06/27/21 at 1614, Recovery (Recovery-Hospital Unit) documented in this encounter Active and Recently [...] tablet (CANCELED) 1232 (Given - Provider: Ronnie Swenson, DANA) ONCE PRN, Starting on Sun06/27/21 at 12 [...] Starting on Sun06/27/21 at 1448 , Until Sun06/28/21 at 0259, BETH SYKES: cabinet override documented in this encounter Care Teams Hair Salon Manager Relationship Specialty Start Date End Date Carlos Bennett MD PCP - General 07/26/10 documented as of this encounter
--- OUTSIDE RECORDS SUMMARY | 2022-04-28 01:50 | XMS_ITS | Clinical Summary ---
:1950 Author Organization [facility] [place] [address] Care Team Providers Name Role Phone Carlos Bennett MD Primary Care Provider Allergies Active Allergy Reactions Severity Noted Date Comments Gluten Protein Other (See Comments) 06/24/2021 unkno wn Ibuprofen Other (See Comments) 06/24/2021 unknown Indapamide Other (See Comments) 06/24/2021 unknown Penicillins Anaphylaxis High 06/24/2021 Piroxicam Other (See Comments) 06/24/2021 unknown Sulfa (Sulfonamide Antibiotics) Other (See Comments) 1 unknown Zolpidem Tartrate Other (See Comments) 06/24/2021 un known Medications Medication Sig Dispensed Refills Start Date End Date Status acetaminophen (TYLENOL) Take 1,300 mg by 0 Active 650 mg Tablet Sustained mouth daily. Do Release not exceed 6 tabs in 24 hours albuterol sulfate Inhale 2 puffs 0 Active (Proair Digihaler) 90 into the lungs mcg/actuation aero every 6 hours as powdr breath act needed. w/sensor budesonide-formoteroL Inhale 2 puffs 0 Active (Symbicort) 160-4.5 into the lungs 2 mcg/actuation HFA times daily. Aerosol Inhaler cholecalciferol, Take 25 mcg by 0 Active vitamin D3, (D3-50 mouth daily. CHOLECALCIFEROL ORAL) clonazePAM (KlonoPIN) Take 0.5 mg by 0 Active 0.5 mg Tablet, Rapid mouth as needed. Dissolve escitalopram oxalate Take 5 mg by 0 Active (LEXAPRO) 5 mg Tablet mouth daily. lactobacillus Take by mouth 0 Ac tive combination no.9 4 daily. billion cell Capsule loratadine (Claritin) Take 10 mg by 0 Active 10 mg Tablet mouth daily. lovastatin (MEVACOR) 20 Take 20 mg by 0 Active mg Tablet mouth nightly. melatonin 10 mg Tablet Take 1 tablet by 0 Active mouth nightly. pantoprazole EC Take 40 mg by 0 Active (Protonix) 40 mg mouth daily. Tablet, Delayed Release (E.C.) docusate sodium Take 100 mg by 0 Active (Colace) 100 mg Capsule mouth 2 times daily. enalapriL (Vasotec) 5 Take 5 mg by 0 Active mg Tablet mouth 2 times daily. betamethasone Apply topically 0 12/31/2020 Active dipropionate Daily. (Diprolene) 0.05 % Cream meclizine (Antivert) 25 Take 25 mg by 0 08/07/2017 Active mg Tablet mouth Three times daily as needed. Social History Tobacco Use Types Packs/Day Years Used Date Former Smoker Smokeless Tobacco: Never Used Alcohol Use Standard Drinks/Week Comments Yes 5 (1 standard drink = 0.6 oz pure alcoho l) Sex Assigned at Date Recorded Not on file Last Filed Vital Signs Vital Sign Reading [...] Mass Index 34.35 06/27/2021 11:56 AM EDT Plan of Treatment Health Maintenance Due Date Last Done Comments Covid-19 Vaccine (#1) 1955 Hepatitis C Screening 1968 Tdap adult 1969 Tetanus vaccine 1969 Breast Cancer Share Decision Needed 1990 Colonoscopy 1995 Breast Cancer screening 2000 Zoster vaccine (1 of 2) 2000 Advance Directive 2005 Bone Density Scan 2015 Pneumoccocal Vaccine: 65+ (1 - PCV) 2015 Influenza (Flu) vaccine (1 of 1 - Influenza standard 05/04/2022 series) Insurance Payer Benefit Plan / Subscriber ID Effective Dates Phone Addre ss Type Group [facility] [facility] [id number] 2021-[place] [phone] [address] [place], [place] MEDICARE MEDICARE PPO [id number] Advance Directives Latest Code Status on File Code Status Date Activated Date Inactivated Comments Attempt Cardiopulmonary Resuscitation 06/27/2021 12:16 PM 2020 7:15 PM - Inpatient Code Status decision made by: Patient Care Teams Vest Maker Relationship Specialty Start Date End Date Carlos Bennett MD PCP - General 07/26/10
--- OUTSIDE RECORDS SUMMARY | 2022-04-28 01:50 | XMS_ITS | Encounter Summary ---
:1950 Author Organization [facility] [place] [address] Care Team Providers Name Role Phone Carlos Bennett MD Primary Care Provider Encounter Details Date Type Department Care Team Description 09/20/2010 Office Visit Sleep Medicine Nguyen Smiley MD [facility] [address] [phone] [place] [address] Social History Tobacco Use Types Packs/Day Years Used Date Never Assessed Sex Assigned at Date Recorded Not on file documented as of this encounter Plan of Treatment Not on filedocumented as of this encounter Visit Diagnoses Not on filedocumented in this encounter Care Teams Phone Operator Relationship Specialty Start Date End Date Carlos Bennett MD PCP - General 07/26/10 documented as of this encounter
[2022-04-28] MEDS: Albuterol HFA 18 GM 200 PUFF INH IH (11:18)
[2022-04-28] MEDS: Inhaler, Assist Device 1 EACH MC (11:19)
--- NOTE | 2022-04-30 12:08 | W.PFT ---
Date of service: 04/28/22 Time of Service: 10:20 Pulmonary Function Test Result Requesting Provider Sarita Bone Indications: LEONE, COPD, Asthma Interpretation Spirometry: There is no airflow limitation. There is no significant bronchodilator response. Lung Volumes: Lung volumes are normal. Diffusion Capacity: Diffusion is normal. Airway Pressure: Airways resistance is normal. Impression Normal pulmonary function testing. Clinical Correlation therefore is recommended.
== END 2022-04-28 01:50 | disposition home or self-care (01) ==
LOC: RT 01:49
PROVIDERS: PCP Nurse Practitioner Family; Visit Provider Nurse Practitioner Family
DX: J44.9 Chronic obstructive pulmonary disease, unspecified (principal); J45.909 Unspecified asthma, uncomplicated; R06.09 Other forms of dyspnea
CPT/HCPCS: 94060; 94726; 94729

== ENCOUNTER → 2022-05-01 02:35 | Outpatient (CLI) | payer OTHER, SELFPAY ==
--- NOTE | 2022-05-01 | DI.CTLCSR_ITS ---
Exam(s) CT CHEST LUNG CANCER SCREEN EXAM: CT CHEST LUNG CANCER SCREEN CLINICAL HISTORY: SCREENING FOR LUNG CA, FORMER SMOKER, Z87.891,PULMONARY NODULE TECHNIQUE: Imaging Protocol: Axial computed tomography images with coronal and sagittal reformatted images were created and reviewed COMPARISON: No exams were available for comparison FINDINGS: Tracheobronchial tree: Patent where visualized. Pulmonary parenchyma: No consolidation or dominant measurable mass. No architectural distortion. Lung Nodules: None. Mediastinum and Aleksandra: No dominant adenopathy or fluid collection. The esophagus is unremarkable.Moder ate hiatal hernia. Surgical clips are seen at the hiatus of the diaphragm. Thyroid gland: Unremarkable. Lymph nodes: Unremarkable. Pleura: No effusion or pneumothorax. Heart: The heart is not dilated. Coronary artery calcifications are present. No pericardial effusion . Aorta: Thoracic aorta non-dilated.Atherosclerosis is present. Upper abdomen: Unremarkable. Soft Tissues: Unremarkable. Bones: Within normal limits. IMPRESSION: No pulmonary nodules. Lung RADS Cat 1 - Negative: No nodules and definitely benign nodules Lung-RADS 1.0 CATEGORIES: Category 0 - Prior chest CT exam(s) being located for comparison. Category 1 - Annual screening in 12 months. No nodules or definitely benign nodules. Category 2 - Annual screening in 12 months. Benign appearance. Nodules with low likelihood of becomin g active cancer. Category 3 - 6-month follow-up. Probably benign. Short-term follow-up suggested. Nodules with low lik elihood of becoming active cancer. Category 4A - 3-month follow-up and CT/PET if >8 mm in size. Suspicious finding. Findings which requi re additional testing. Category 4B - Findings which require additional testing and tissue sampling. Suspicious finding. Category 4X - Category 3 or 4 nodules with additional features or imaging findings that increases the suspicion of malignancy. Modifier S- Potentially clinically significant finding. (Non lung cancer) RADIATION DOSE DELIVERED: 64.43mGy.cm Total DLP 1.84mGy CTDIvol 64.43mGy.cm Total DLP 1.84mGy CTDIvol DATA REPOSITORY: All CT scans at this facility are submitted to the National Radiology Data Registry (NRDR) Dose Index Registry (DIR) with the [employer] (ACR). RADIATION OPTIMIZATION: All CT scans at this facility use at least one of these dose optimization te chniques: automated exposure control; mA and/or kV adjustment per patient size (includes targeted exa ms where dose is matched to clinical indication); or iterative reconstruction.
== END ==
PROVIDERS: PCP Nurse Practitioner Family; Visit Provider Nurse Practitioner Family
DX: Z87.891 Personal history of nicotine dependence (principal); Z12.2 Encounter for screening for malignant neoplasm of respiratory organs
CPT/HCPCS: 71271

== ENCOUNTER 2022-05-25 19:08 | Outpatient (REF) | payer OTHER, SELFPAY ==
[2022-05-25 19:26] LABS: Abs Immature Grans 0.01 10^3/uL (0.0-0.06); Absolute Basophil Count 0.02 10^3/uL (0.0-0.2); Absolute Eosinophil Count 0.06 10^3/uL (0.0-0.7); Absolute Monocyte Count 0.41 10^3/uL (0.1-0.8); Absolute Neutrophil Count 2.64 10^3/uL (1.2-6.7); Basophils % 0.4; Eosinophils % 1.2; HCT 38.1 % (36.0-46.0); HGB 12.8 g/dL (11.2-15.7); Immature Grans % 0.2; Lymphocytes % 37.7; MCH 30.6 pg (27.0-33.0); MCHC 33.6 % (32.0-36.0); MCV 91 fL (80-95); MPV 11.5 fL (8.0-11.0); Monocytes % 8.1; Neutrophils % 52.4; Platelet Count 147 10^3/uL (130-400); RBC 4.18 10^6/uL (3.93-5.22); RDW 14.1 % (11.7-14.6); RDW-SD 47.5 fL; WBC 5.04 10^3/uL (4.4-10.8)
[2022-05-25 20:02] LABS: ALT 33 U/L (14-59); AST 24 U/L (15-37); Alkaline Phosphatase 57 U/L (46-116); Anion Gap 8.5 mmol/L (3-11); BUN 10 mg/dL (7-18); Bilirubin, Total 0.4 mg/dL (0.2-1.0); CO2 28.5 mmol/L (21.0-32.0); CREATININE 0.9 mg/dL (0.55-1.02); Calcium 9.1 mg/dL (8.5-10.1); Chloride 104 mmol/L (98-107); Estimated GFR 67.92 (mL/min/1.73m2); Glucose 111 mg/dL (74-106); Potassium 4.3 mmol/L (3.5-5.1); Sodium 141 mmol/L (136-145); Total Protein 7.1 g/dL (6.4-8.2)
== END 2022-05-25 19:09 | disposition home or self-care (01) ==
LOC: NCHCN 19:08
PROVIDERS: PCP Nurse Practitioner Family; Visit Provider Nurse Practitioner Family
DX: R19.7 Diarrhea, unspecified (principal)
CPT/HCPCS: 80053; 85025

== ENCOUNTER 2022-05-27 12:27 | Outpatient (REF) | payer OTHER, SELFPAY ==
[2022-05-28 22:38] LABS: Campylobacter PCR Negative (Negative); Salmonella PCR Negative (Negative); Shiga Toxin PCR Negative (Negative); Shigella/Enteroinvasive Ecoli Negative (Negative)
== END 2022-05-27 12:28 | disposition home or self-care (01) ==
LOC: NCHCN 12:27
PROVIDERS: PCP Nurse Practitioner Family; Visit Provider Nurse Practitioner Family
DX: R19.7 Diarrhea, unspecified (principal)
CPT/HCPCS: 87505; 87177

== ENCOUNTER 2022-10-16 13:34 | Emergency (ER) | payer OTHER, SELFPAY ==
--- NOTE | 2022-10-16 13:30 | RT.EKG_ITS ---
APPROVED REPORT Exam: Resting ECG Reason for Exam: heart palpitations Patient Location: E HR:81 bpm ECG Measurements Heart Rate 81 AXIS AR 151 P 34 QRSd 104 QRS -2 QT 385 T 57 QTc 448 Conclusion Sinus rhythm...normal P axis, V-rate 60- 99 Probable left atrial enlargement...P >50mS, <-0.10mV V1 Physicin: no stemi
[2022-10-16 13:38] VITALS: BP 103/65; PULSE 84; RESP 22; TEMP 36.5; O2SAT 94
--- NOTE | 2022-10-16 13:45 | DI.RAD_ITS ---
Exam(s) XR PORTABLE CHEST AP EXAM: XR PORTABLE CHEST AP CLINICAL HISTORY: sob TECHNIQUE: 2D digital imaging was performed. COMPARISON: CT CT CHEST LUNG CANCER SCREEN from 05/01/2022 FINDINGS: LUNGS: Clear. No pleural abnormality seen. HEART: Normal size. AORTA: Normal diameter. BONES: Unremarkable for age. Soft tissues: Hiatal hernia. IMPRESSION: No acute findings. DATA REPOSITORY: RADIATION DOSE DELIVERED:
[2022-10-16 14:24] LABS: BE (Venous) 1 mmol/L (-2-3); HCO3 (Venous) 26 mmol/L (23-28); O2 Sat (Venous) 80 %; TCO2 (Venous) 23 mmol/L (24-29); pCO2 (Venous) 43 mmHg (41-51); pH (Venous) 7.39 (7.31-7.41); pO2 (Venous) 43 mmHg
[2022-10-16 14:25] LABS: Abs Immature Grans 0.01 10^3/uL (0.0-0.06); Absolute Basophil Count 0.03 10^3/uL (0.0-0.2); Absolute Lymphocyte Count 1.85 10^3/uL (1.2-3.4); Absolute Monocyte Count 0.37 10^3/uL (0.1-0.8); Absolute Neutrophil Count 4.04 10^3/uL (1.2-6.7); Basophils % 0.5; Eosinophils % 1.6; HCT 40.3 % (36.0-46.0); HGB 13.1 g/dL (11.2-15.7); Immature Grans % 0.2; Lymphocytes % 28.9; MCH 30.3 pg (27.0-33.0); MCHC 32.5 % (32.0-36.0); MCV 93 fL (80-95); Monocytes % 5.8; Platelet Count 174 10^3/uL (130-400); RBC 4.32 10^6/uL (3.93-5.22); RDW 13.7 % (11.7-14.6); RDW-SD 46.8 fL
[2022-10-16 14:31] VITALS: O2SAT 96
[2022-10-16] MEDS: Albuterol/Ipratropium 3 ML UPD VIAL 6 ML UPD (14:31)
--- NOTE | 2022-10-16 14:31 | W.ED.GENAD ---
Discharge Plan Disposition Patient Disposition: Home Discharge Details Clinical Impression: COPD exacerbation Primary Care Provider: Sarita Bone ED Provider: Avtar Staley Home Meds and New Rx's Prescriptions: New prednisone 50 mg tablet 50 mg PO DAILY Qty: 5 0RF Continued albuterol sulfate 90 mcg/actuation HFA aerosol inhaler 2 puff inhalation Q6H PRN budesonide-formoterol [Symbicort] 160-4.5 mcg/actuation HFA aerosol inhaler 2 puff inhalation BID clonazepam 0.5 mg tablet 0.5 mg PO PRN escitalopram oxalate 5 mg tablet 5 mg PO DAILY acetaminophen [Tylenol Arthritis Pain] 650 mg tablet extended release 1,300 mg PO DAILY betamethasone dipropionate 0.05 % cream 1 applic topical DAILY PRN cholecalciferol (vitamin D3) 25 mcg (1,000 unit) capsule 25 mcg PO DAILY Adult 50 Plus Probiotic 4 billion cell capsule 4,000 mmu cells PO DAILY Rx Instructions: administer with a meal loratadine 10 mg capsule 10 mg PO DAILY melatonin 10 mg capsule 10 mg PO HS PRN lovastatin 20 mg tablet 10 mg PO DAILY pantoprazole [Protonix] 40 mg tablet,delayed release (DR/EC) 40 mg PO DAILY docusate sodium [Colace] 100 mg capsule 100 mg PO BID enalapril maleate 5 mg tablet 5 mg PO BID Incruse Ellipta 62.5 mcg/actuation blister with device 1 inh inhalation DAILY benzonatate 100 mg capsule 100 mg PO TID PRN Discharge Instructions Instructions: COPD (Chronic Obstructive Pulmonary Disease) (ED) Additional Instructions: At this time your symptoms appear consistent with a COPD exacerbation. Your chest x-ray shows no pneumonia, your heart exam shows no signs of significant heart problem or abnormality. Please use your inhaler, 2 puffs every 4-6 hours. Please take the steroid as directed. It is been sent to your pharmacy on file. If you notice any worsening of your symptoms, or any new symptoms such as vomiting, diarrhea, fever, chills, shortness of breath, chest pain, numbness, weakness, or fainting , please return immediately to the emergency department for reevaluation. Please follow up with your primary care provider as soon as possible for reassessment and reevaluation. As always, it was a pleasure participating in your medical care today. Referrals: Sarita Bone [Primary Care Provider] - Medical Decision Making 72-year-old female with a past medical history of asthma COPD, bipolar, obstructive sleep apnea, who presents today for evaluation of shortness of breath. Patient states that over the last 1 to 2 days she has had slight increase in her chronic shortness of breath. This has been associated with some intermittent palpitations. She denies any chest pain. She does admit to a mild pleuritic tightness. She denies any fever or chills. She denies any vomiting or diarrhea. Patient states that she has been using her inhalers at home, and they have only helped a little. No other complaints at this time. No history of heart attacks in the past. No exertional chest pain. Exam demonstrates well-appearing female, minimally dyspneic. Minimal wheezes. Laboratory work-up was performed, no white count bandemia or left shift. D-dimer is age-adjusted normal. VBG notably stable. Electrolytes stable. Oxygenation excellent. Renal function is stable. Troponin normal. proBNP shows no evidence of heart strain or CHF. Chest x-ray was performed negative for acute process per radiology. Patient symptoms were most concerning for mild asthma/COPD. Symptoms clinically inconsistent with ACS. After the breathing treatment the patient is feeling much better. Her shortness of breath notably improved. We will give a dose of Solu-Medrol, recommend 5-day short course of prednisone, and we will recommend continued inhaler use at home. Patient shows no evidence of significant COPD exacerbation requiring admission. No hypoxemia, no exertional hypoxemia. Patient stable for discharge. I have extensively reviewed the treatment plan and discharge instructions with the patient. I have addressed all patient concerns at this time. The patient was made aware of what symptoms to monitor for that would warrant a return to the emergency department. Discussed the plan with the patient, they demonstrate verbal understanding and agreement with our assessment and plan at this time. The documentation in this chart was dictated using [employer] dictation software. Please excuse any dictation errors. Patient was feeling slightly jittery after the breathing treatment, heart rate was slightly elevated, however she other review ascencio remains very stable. Patient feels stable to go home. FINDINGS: LUNGS: Clear. No pleural abnormality seen. HEART: Normal size. AORTA: Normal diameter. BONES: Unremarkable for age. Soft tissues: Hiatal hernia. IMPRESSION: No acute findings. HPI General Date/Time Provider Initiated Documentation: 10/16/22 13:41. HPI Narrative: 72-year-old female with a past medical history of asthma COPD, bipolar, obstructive sleep apnea, who presents today for evaluation of shortness of breath. Patient states that over the last 1 to 2 days she has had slight increase in her chronic shortness of breath. This has been associated with some intermittent palpitations. She denies any chest pain. She does admit to a mild pleuritic tightness. She denies any fever or chills. She denies any vomiting or diarrhea. Patient states that she has been using her inhalers at home, and they have only helped a little. No other complaints at this time. No history of heart attacks in the past. No exertional chest pain. Related Data Home Medications Medication Instructions Recorded Confirmed acetaminophen 650 mg 1,300 mg PO DAILY 12/31/20 09/25/22 tablet,extended release (Tylenol Arthritis Pain) albuterol sulfate 90 mcg/actuation 2 puff inhalation Q6H PRN 12/31/20 09/25/22 aerosol inhaler betamethasone dipropionate 0.05 % 1 applic topical DAILY PRN 12/31/20 09/25/22 topical cream budesonide-formoterol HFA 160 2 puff inhalation BID 12/31/20 09/25/22 mcg-4.5 mcg/actuation aerosol inhaler (Symbicort) cholecalciferol (vitamin D3) 25 25 mcg PO DAILY 12/31/20 09/25/22 mcg (1,000 unit) capsule clonazepam 0.5 mg tablet 0.5 mg PO PRN 12/31/20 09/25/22 escitalopram oxalate 5 mg tablet 5 mg PO DAILY 12/31/20 09/25/22 lactobacillus combination no.9 4 4,000 mmu cells PO DAILY 12/31/20 09/25/22 billion cell capsule (Adult 50 Plus Probiotic) loratadine 10 mg capsule 10 mg PO DAILY 12/31/20 09/25/22 lovastatin 20 mg tablet 10 mg PO DAILY 12/31/20 09/25/22 melatonin 10 mg capsule 10 mg PO HS PRN 12/31/20 09/25/22 pantoprazole 40 mg tablet,delayed 40 mg PO DAILY 12/31/20 09/25/22 release (Protonix) docusate sodium 100 mg capsule 100 mg PO BID 02/16/21 09/25/22 (Colace) enalapril maleate 5 mg tablet 5 mg PO BID 05/16/21 09/25/22 benzonatate 100 mg capsule 100 mg PO TID PRN 04/28/22 09/25/22 umeclidinium 62.5 mcg/actuation 1 inh inhalation DAILY 04/28/22 09/25/22 blister powder for inhalation (Incruse Ellipta) prednisone 50 mg tablet 50 mg PO DAILY #5 tabs 10/16/22 Previous Rx's Medication Instructions Recorded prednisone 50 mg tablet 50 mg PO DAILY #5 tabs 10/16/22 Allergies Allergy/AdvReac Type Severity Reaction Status Date / Time Penicillins Allergy Severe Anaphylaxis Verified 10/16/22 13:45 Sulfa (Sulfonamide Allergy Severe none noted Verified 10/16/22 13:45 Antibiotics) on referral piroxicam [From Feldene] Allergy Intermediate none noted Verified 10/16/22 13:45 on referral zolpidem [From Ambien] AdvReac Severe none noted Verified 10/16/22 13:45 on referral gluten AdvReac Intermediate none noted Verified 10/16/22 13:45 on referral ibuprofen AdvReac Intermediate none noted Verified 10/16/22 13:45 on referral indapamide AdvReac Intermediate none noted Verified 10/16/22 13:45 on referral General Stated Complaint: RespSymp YARI: 3 Review of Systems All systems reviewed & are unremarkable except as noted in HPI and below PFSH All Active Problems (Updated 10/16/22 @ 15:09 by Avtar Staley DO) COPD exacerbation (Acute) Dyspnea (Acute) Personal history of nicotine dependence (Acute) Asthma-COPD overlap syndrome (Acute) Suicidal risk (Acute) Pulmonary nodule/lesion, solitary (Acute) Palpitations (Acute) Neck strain (Acute) Caregiver role strain (Acute) Fatigue (Acute) Essential tremor (Acute) Hypertension (Acute) Chest pain (Acute) Gastroesophageal reflux disease (Chronic) Celiac sprue (Acute) Screening for colon cancer (Acute) Medical History Bipolar 1 disorder Cataract COPD (chronic obstructive pulmonary disease) Deafness in left ear Family history of breast cancer in first degree relative Family history of celiac sprue Family hx of colon cancer Former smoker Functional constipation GERD (gastroesophageal reflux disease) Glaucoma Gluten intolerance History of prediabetes Hypercholesterolemia Lichen sclerosus et atrophicus of the vulva Mixed incontinence urge and stress Obesity RICARDO (obstructive sleep apnea) Osteoarthritis Osteoporosis Pseudophakia Thrombocytopenia Vaginal atrophy Surgical History H/O knee surgery H/O tubal ligation History of appendectomy History of colonoscopy (~02/2021) History of esophagogastroduodenoscopy (EGD) (~02/2021) History of fundoplication History of tonsillectomy History of urethral stent Hx of cataract surgery Family History Father , FROM [place] Colon cancer Dementia FH: cataracts Mother Heart disease Depression Arthritis Diabetes Hypertension Sister Breast cancer Hypertension Myocardial infarct, old Sister Kidney malignancy COPD (chronic obstructive pulmonary disease) Loss of balance Sister COPD (chronic obstructive pulmonary disease) Cancer Smoker Sister COPD (chronic obstructive pulmonary disease) Obesity Diabetes Sister COPD (chronic obstructive pulmonary disease) Obesity Smoker Stroke Brother Myocardial infarct, old Brother Hypertension Myocardial infarct, old Daughter Asthma Son Lung abnormality Sister Cancer breast cancer Social History Smoking/Tobacco Use Status: Former Tobacco Use Quit Date: 09/03/13 Smoking risk assessment performed?: Yes Alcohol Intake: current Alcohol Intake frequency: 0-2 drinks per day Alcohol type: wine Substance use type: does not use Household members: family Number of Children: 2 What is your relationship status?: Panel score (0-1 are the most socially isolated patients): 0 Do you feel safe at home: Yes Do you feel safe in your relationship?: Yes Additional Social history: Living with her sister and sister's . Helping to care for both. Exam Narrative Exam Narrative: 1.Const: Well-nourished, Well-developed, appearing stated age 2.Eyes: PERRL, no conjunctival injection, and symmetrical lids. 3.ENT: Atraumatic external nose and ears. Moist MM. Neck: Symmetric, trachea midline, No thyromegaly. 4.CVS: +S1/S2, No murmurs or gallops. Peripheral pulses 2+ and equal in all extremities. Brisk capillary refill in all extremities. 5.RESP: Unlabored respiratory effort. Mild wheeze throughout. 6.GI: Soft, Nontender/Nondistended, No hepatosplenomegaly. No guarding or rebound. 7.MSK: Normocephalic/Atraumatic, Extremities w/o deformity or ttp No cyanosis or clubbing, Normal movement of all extremities, no peripheral edema. 8.Skin: Warm, Dry. No rashes or lesions. 9.Neuro: first responder II-XII grossly intact. Sensation grossly intact, no focal neurologic deficits. 10.Psych: (AAO) x3. Appropriate mood and affect Course Vital Signs Vital signs: Vital Signs Temperature 36.5 C 10/16/22 13:38 Pulse 84 10/16/22 13:38 Respiratory Rate 22 10/16/22 13:38 Blood Pressure 103/65 10/16/22 13:38 Pulse Oximetry 94 10/16/22 13:38 Temperature 36.5 C 10/16/22 13:38 Temperature Source Oral 10/16/22 13:38 Pulse 84 10/16/22 13:38 Respiratory Rate 22 10/16/22 13:38 Respiratory Effort Non-Labored, Short of Breath 10/16/22 14:28 Respiratory Depth Normal 10/16/22 14:28 Blood Pressure 103/65 10/16/22 13:38 Blood Pressure Position Sitting 10/16/22 13:38 Pulse Oximetry 94 10/16/22 13:38 Oxygen Delivery Method Room Air 10/16/22 13:38 Oxygen Flow Rate 0 10/16/22 13:38 Pain Level 0 10/16/22 13:38 Lab/Test Results Lab/Test Results: Laboratory Tests Range/Units 10/16/22 10/16/22 14:19 14:19 WBC (4.4-10.8) 10^3/uL 6.40 RBC (3.93-5.22) 10^6/uL 4.32 Hgb (11.2-15.7) g/dL 13.1 Hct (36.0-46.0) % 40.3 MCV (80-95) fL 93 MCH (27.0-33.0) pg 30.3 MCHC (32.0-36.0) % 32.5 RDW (11.7-14.6) % 13.7 Plt Count (130-400) 10^3/uL 174 MPV (8.0-11.0) fL 10.0 Immature Gran % 0.2 Neutrophils % 63.0 Lymphocytes % 28.9 Monocytes % 5.8 Eosinophils % 1.6 Basophils % 0.5 Nucleated RBC % (0.0-0.3) % 0.0 Absolute Neutrophils (1.2-6.7) 10^3/uL 4.04 Absolute Lymphocytes (1.2-3.4) 10^3/uL 1.85 Absolute Monocytes (0.1-0.8) 10^3/uL 0.37 Absolute Eosinophils (0.0-0.7) 10^3/uL 0.10 Absolute Basophils (0.0-0.2) 10^3/uL 0.03 VBG pH (7.31-7.41) 7.39 VBG pCO2 (41-51) mmHg 43 VBG pO2 mmHg 43 VBG HCO3 (23-28) mmol/L 26 VBG Total CO2 (24-29) mmol/L 23 L VBG O2 Saturation % 80 VBG Base Excess (-2-3) mmol/L 1
[2022-10-16 14:48] LABS: PTT Activated 21.9 sec (21.5-31.9); Prothrombin Time 10.2 sec (9.3-11.0)
[2022-10-16 14:49] LABS: ALT 32 U/L (14-59); AST 30 U/L (15-37); Alkaline Phosphatase 68 U/L (46-116); Anion Gap 8.7 mmol/L (3-11); BUN 12 mg/dL (7-18); Bilirubin, Total 0.4 mg/dL (0.2-1.0); CO2 26.3 mmol/L (21.0-32.0); CREATININE 1.1 mg/dL (0.55-1.02); Chloride 105 mmol/L (98-107); Estimated GFR 53.39 (mL/min/1.73m2); Glucose 124 mg/dL (74-106); NT-proBNP 77 pg/mL (<300); Potassium 4.5 mmol/L (3.5-5.1); Sodium 140 mmol/L (136-145); Total Protein 7.4 g/dL (6.4-8.2); Troponin I < 50 ng/L (<or=60)
[2022-10-16 15:00] LABS: D-Dimer 579 ng/mlFEU (<500)
[2022-10-16] MEDS: methylPREDNISolone SUCC 125 MG VIAL IVP (15:10)
[2022-10-16] MEDS: Albuterol HFA 8 GM 60 PUFF INH IH (15:17)
== END 2022-10-16 15:22 | disposition home or self-care (01) ==
PROVIDERS: Emergency Provider Student in an Organized Health Care Education/Training Program; PCP Nurse Practitioner Family
DX: J45.901 Unspecified asthma with (acute) exacerbation (principal); F31.9 Bipolar disorder, unspecified; I10 Essential (primary) hypertension; Z79.51 Long term (current) use of inhaled steroids; R06.02 Shortness of breath
CPT/HCPCS: 36415; 80053; 82805; 93005; 96374; 96375; 99284; 71045; 83880; 84484; 85025; 85379; 85610; 85730; 93010; 99285; J2930; J7620

== ENCOUNTER 2022-11-10 15:13 | Outpatient (REF) | payer OTHER, SELFPAY ==
[2022-11-10 21:00] LABS: Abs Immature Grans 0.03 10^3/uL (0.0-0.06); Absolute Basophil Count 0.02 10^3/uL (0.0-0.2); Absolute Eosinophil Count 0.14 10^3/uL (0.0-0.7); Absolute Lymphocyte Count 1.75 10^3/uL (1.2-3.4); Absolute Monocyte Count 0.38 10^3/uL (0.1-0.8); Absolute Neutrophil Count 2.58 10^3/uL (1.2-6.7); Basophils % 0.4; Eosinophils % 2.9; HCT 39.2 % (36.0-46.0); HGB 12.7 g/dL (11.2-15.7); Immature Grans % 0.6; Lymphocytes % 35.7; MCHC 32.4 % (32.0-36.0); MCV 93 fL (80-95); MPV 11.5 fL (8.0-11.0); Monocytes % 7.8; Neutrophils % 52.6; Platelet Count 164 10^3/uL (130-400); RBC 4.24 10^6/uL (3.93-5.22); RDW 13.8 % (11.7-14.6); RDW-SD 47.1 fL
[2022-11-10 21:14] LABS: Iron 69 ug/dL (50-170); Total Iron Binding Capacity 342 ug/dL (250-450); Transferrin Sat 20 % (15-50)
[2022-11-10 21:25] LABS: Anion Gap 9.1 mmol/L (3-11); BUN 11 mg/dL (7-18); CO2 29.9 mmol/L (21.0-32.0); Chloride 104 mmol/L (98-107); Estimated GFR 59.86 (mL/min/1.73m2); Glucose 105 mg/dL (74-106); Magnesium 2.1 mg/dL (1.8-2.4); Potassium 5.1 mmol/L (3.5-5.1); Sodium 143 mmol/L (136-145)
[2022-11-10 21:38] LABS: Vitamin D 25 Total 29.2 ng/mL (30-100)
[2022-11-10 22:04] LABS: Ferritin 75 ng/mL (8-252); Vitamin B12 369 pg/mL (193-986)
== END 2022-11-10 15:14 | disposition home or self-care (01) ==
LOC: NCHCN 15:13
PROVIDERS: PCP Nurse Practitioner Family; Visit Provider Nurse Practitioner Family
DX: G47.62 Sleep related leg cramps; M85.80 Other specified disorders of bone density and structure, unspecified site; R41.3 Other amnesia; N28.9 Disorder of kidney and ureter, unspecified; G44.89 Other headache syndrome; I10 Essential (primary) hypertension; R73.03 Prediabetes; R42 Dizziness and giddiness
CPT/HCPCS: 80048; 82306; 82607; 82728; 83540; 83550; 83735; 84443; 85025

== ENCOUNTER 2022-11-20 02:09 | Outpatient (CLI) | payer OTHER, SELFPAY ==
--- NOTE | 2022-11-20 15:15 | DI.MAMMO_ITS ---
Exam(s) MAMMO SCREENING EXAM: MAMMO SCREENING CLINICAL HISTORY: SCREENING, Z12.31; FAMILY H/O BREAST CA, Z80.3. TECHNIQUE: Bilateral full field digital CC and MLO mammographic images were obtained with 3D tomosyn thesis and utilizing computer aided detection (CAD). COMPARISON: Prior mammograms were reviewed. Prior right breast ultrasound performed 10/17/2021 was also reviewed. FINDINGS: There has been no significant change in the appearance and distribution of the fibroglandular tissue. Asymmetric tissue in the right breast is unchanged from prior studies. There are no new spiculated masses nor malignant appearing microcalcification groups. There is no significant architectural distortion nor skin thickening-retraction. IMPRESSION: No radiographic evidence of malignancy. Stable benign-appearing findings. BI-RADS Category 2 - Benign Findings Breast Density - Category C - Heterogeneously dense Breast density Category C or D implies that the patient has dense breast tissue. Dense breast tissue can make it harder to find cancer on a mammogram. Dense breast tissue is also associated with an incr eased risk of breast cancer. This information about the result of the mammogram report was provided to the patient to raise their awareness. Use this report when you speak with the patient about their risks for breast cancer, which includes their family history. At that time, you may recommend additional screening tests (Ultrasoun d or MRI) as these tests may add significant information. A negative radiographic report should not delay biopsy if a dominant or clinically suspicious mass is present. Up to ten percent of cancers are not identified on mammography. A negative report may reinforce clinical impression. Adenosis and dense breasts may obscure an underlying neoplasm. False positive reports average 6 to 10%. Patient will receive a letter notifying them of these results.
== END 2022-11-20 02:29 ==
LOC: DI 02:10
PROVIDERS: PCP Nurse Practitioner Family; Visit Provider Nurse Practitioner Family
DX: Z12.31 Encounter for screening mammogram for malignant neoplasm of breast (principal); Z80.3 Family history of malignant neoplasm of breast
CPT/HCPCS: 77063; 77067

== ENCOUNTER 2022-11-24 00:49 | Outpatient (CLI) | payer OTHER, SELFPAY ==
--- NOTE | 2022-11-24 14:39 | DI.US_ITS ---
APPROVED REPORT EXAM: Comprehensive 2D, Doppler, and color-flow Echocardiogram Patient Location: Out-Patient [facility] Science Writer: Gladis Schwarz RDCS (AE) Indications: Dyspnea, Normal PFT, Asthma, COPD Other Information Study Quality: Adequate Conclusion Normal left ventricular wall thickness and chamber size. Ejection fraction is 60%. Wall motion is n ormal Normal right ventricular size and systolic function Both atria are normal in size There is no structural or hemodynamically significant valvular disease. Estimated right ventricular systolic pressure is 22 mmHg Wall motion Left Ventricle The left ventricle is normal size. The left ventricular systolic function is normal. The left ventric ular ejection fraction is within the normal range. There is normal left ventricular wall thickness. T here is normal LV segmental wall motion. There is no ventricular septal defect visualized. LVEF is 60 %. Right Ventricle The right ventricle is normal size. The right ventricular systolic function is normal. The RVSP is 22 .4 mmHg. Atria The left atrium size is normal. The right atrium size is normal. The interatrial septum is intact wit h no evidence for an atrial septal defect. Aortic Valve The aortic valve is normal in structure. Aortic valve is trileaflet. There is no aortic valvular sten osis. No aortic regurgitation is present. Mitral Valve The mitral valve is normal in structure. No evidence of mitral valve stenosis. Trace mitral regurgita tion. Tricuspid Valve The tricuspid valve is normal in structure. There is no tricuspid valve stenosis. Trace tricuspid reg urgitation. Pulmonic Valve The pulmonary valve is normal in structure. There is no pulmonic valvular stenosis. Trace pulmonic re gurgitation. Great Vessels The aortic root is normal in size. The ascending aorta is normal Aortic arch is normal in caliber. IV C is normal in size and collapses >50% with inspiration. Pericardium There is no pericardial effusion. 2D Dimensions IVSD d PLAX 0.90 cm F: 0.6-1.0 LV Vol A2C d MOD 85.5 mL LVPW d PLAX 0.92 cm F: 0.6 - 1.0 LV Vol A4C d MOD 59.7 mL LVID d PLAX 4.69 cm F: 3.8 - 5.2 LA vol/ BSA A2C s A-L 14.6 mL/m2 LVDs 3.25 cm F: 2.2 - 3.5 LA vol/ BSA A4C s A-L 15.6 mL/m2 Ao Root d 2.63 cm F: 2.7 - 3.3 LA Vol/ BSA Biplane s A-L 15.8 mL/m2 RA Area A4C 11.90 cm2 LA Area A4C s MOD 11.92 cm2 RA Vol/ BSA A4C s A-L 16.5 mL/m2 LA Area A2C s MOD 12.11 cm2 Ao Asc Diam d 3.28 cm F: 2.3 - 3.1 LV EF A4C MOD 60.3 % LV EF Teichholz 58.1 % LV EF A2C MOD 60.5 % LVEF (Gonzalez's) 59.78 % F: 54 - 74 LV EF Biplane MOD 59.8 % LV Volume 54.93 mL F: 46 - 106 SV 42.72 mL LV Volume Index 29.53 mL/m2 F: 29 - 61 SV Index 22.96 mL/m2 LV Vol Biplane MOD 71.5 mL FS 30.55 % M-Mode TAPSE 1.90 cm (M/F) >1.7 LV Diastology MV E' medial 0.072 (>0.07 m/s) E/A Ratio 0.8 LV E/e MED 10.90 (<14) MV E Vmax 0.79 (0.4-1.3 m/s) MV E' lateral 0.088 (>0.1 m/s) MV A Vmax 0.95 (0.4-1.3 m/s) LV E/e LAT 8.95 (<14) MV E/A Ratio 0.82 MV E/E' medial 10.94 MV E/E' lateral 8.96 Aortic Valve LVOT Area 2.76 cm2 AoV Area Vmax 2.46 cm2 LVOT Vmax 1.03 m/s AoV Area/ BSA (Vmax) 1.32 cm2/m2 LVOT Mean Bogdan. 0.61 m/s KATHLEEN Mean Bogdan. 2.21 cm2 LVOT Peak Grad 4.2 mmHg KATHLEEN Mean Bogdan. Index 1.19 cm2/m2 LVOT Mean Grad 1.9 mmHg LVOT VTI 0.250 m LVOT Diam s 1.85 cm AoV Vmax 1.15 m/s Velocity Ratio 0.90 AoV Mean Bogdan. 0.76 m/s AoV Peak Grad 5.3 mmHg LVOT SV 69.02 mL AoV Mean Grad 2.7 mmHg AoV VTI 0.292 m AoV Area VTI 2.36 cm2 AoV Area/ BSA (VTI) 1.27 cm/m2 Mitral Valve MV DT 207 (160-240 msec) MV PHT 60 msec MV Area PHT 3.66 cm2 Pulmonary Valve PV Vmax 1.04 (0.5-1.5 m/s) RVOT Peak Gr. 1.94 mmHg PV Peak Grad 4.3 mmHg RVOT Mean Gr. 1.05 mmHg PV Mean Grad 2.2 mmHg RVOT VTI 0.180 m PV VTI 0.223 m RVOT Vmax 0.70 m/s Tricuspid Valve TR Peak Grad 19.3 mmHg TR Vmax 2.20 m/s RA Pressure 3.00 mmHg RVSP (TR) 22.4 mmHg
== END 2022-11-24 01:09 ==
LOC: DI 00:49
PROVIDERS: PCP Nurse Practitioner Family; Visit Provider Student in an Organized Health Care Education/Training Program
DX: J44.9 Chronic obstructive pulmonary disease, unspecified (principal); R06.00 Dyspnea, unspecified
CPT/HCPCS: 93306